=== PATIENT | male | born 1955 | race Caucasian/White ===

== ENCOUNTER 2020-12-25 13:00 | Emergency (ER) | payer MEDICARE, SELFPAY ==
[2020-12-25 13:02] VITALS: BP 212/111; PULSE 71; RESP 18; TEMP 35.9; O2SAT 100; BMI 19.9
[2020-12-25 13:03] VITALS: BP 212/111; PULSE 71; RESP 18; TEMP 35.9; O2SAT 100
--- NOTE | 2020-12-25 13:23 | ED.RN ---
Pt. presents with bilateral flank pain since yesterday. Does report some blood in urine x1 yesterday; none since. Alert and oriented x4. Ambulated to room 07 with no difficulties.
--- NOTE | 2020-12-25 14:25 | CT_ITS ---
EXAM: CT ABDOMEN AND PELVIS WITH INTRAVENOUS CONTRAST CLINICAL INDICATION: abdominal pain TECHNIQUE: Helically acquired images were obtained of the abdomen and pelvis with intravenous contrast. This CT exam was performed using one or more of the following dose reduction techniques: automated exposure control, adjustment of the mA and/or kV according to patient size, and/or use of iterative reconstruction technique. This report was created using [employer] report generation technology. CONTRAST: IV 100mL Isovue-370 COMPARISON: None. FINDINGS: LOWER THORAX: Unremarkable. Lung bases are clear. No cardiomegaly. No significant pericardial effusion. ABDOMEN: LIVER: Unremarkable. Homogeneous. No focal mass. GALLBLADDER AND BILE DUCTS: Unremarkable. No calcified gallstones. No gallbladder distention or wall edema. No intra- or extrahepatic biliary ductal dilation. PANCREAS: Unremarkable. No focal cystic or solid mass. SPLEEN: Unremarkable. Normal size without focal cystic or solid mass. ADRENALS: Unremarkable. No nodules. KIDNEYS AND URETERS: Unremarkable. Normal renal size and position. No hydronephrosis. STOMACH AND BOWEL: Unremarkable. No stomach or bowel distention. No focal inflammatory change. PELVIS: APPENDIX: Normal. BLADDER: Unremarkable. REPRODUCTIVE: Unremarkable as visualized. No mass. ABDOMEN and PELVIS: INTRAPERITONEAL SPACE: Unremarkable. No ascites or other fluid collection. No free air. BONES/JOINTS: Minimal degenerative retrolisthesis of L2 on L3. Moderate pronounced degenerative disc space height narrowing at L2-L3 and L5-S1 disc space levels. No suspicious lytic or blastic abnormality. SOFT TISSUES: Unremarkable. No discrete abdominal or pelvic wall hernia. VASCULATURE: Calcified and noncalcified plaques along the abdominal aorta and iliac arteries. Abdominal aorta is non-dilated. LYMPH NODES: Unremarkable. No enlarged lymph nodes. CT/Abdomen/Pelvis W IV Cont ONLY IMPRESSION: No CT evidence of acute abnormality in the pelvis. Electronically Signed: Mp Traylor MD at 15:47 EDT , Service support ,
--- NOTE | 2020-12-25 14:25 | EKG12_ITS ---
Test Reason : BLOODY URINE Blood Pressure : / mmHG Vent. Rate : 058 BPM Atrial Rate : 058 BPM P-R Int : 110 ms QRS Dur : 090 ms QT Int : 388 ms P-R-T Axes : 074 076 057 degrees QTc Int : 380 ms Sinus bradycardia with short CA Otherwise normal ECG Confirmed by RENATA RAY, ISHA ([id number]), assistant film editor NGUYEN ROACH ([id number]) on 12/31/2020 9:38:33 A M Referred By: JERROD Confirmed By:JOY YANEZ MD
--- NOTE | 2020-12-25 14:30 | EDS_ITS ---
HPI History of Present Illness Chief Complaint: Flank Pain Informant: patient Narrative Narrative: Patient is a 65-year-old male denies any significant past medical history but does have history of tobacco use presenting with hematuria. Patient noticed large amount of blood in his urine on Thursday, 3 days ago. He states its been fluctuating in the amount of blood in it since then. This morning he had some amount of blood but then also passed a clot. He denies associated hematuria. He notes he had been having increasing back pain since Thursday. He was doing a lot of lifting 2 days before that but not sure if it was related. He denies any history of kidney stones. He currently does not have any back pain. He went to urgent care today where he was found to have a large amount of blood in his urine but was also hypertensive. He was sent to the emergency room a she did have a kidney stone and for further evaluation of his high blood pressure. Patient denies any known history of high blood pressure but states his daughter checked his blood pressure couple weeks ago and told him it was high. Is not remember the actual number. He denies any fever or chills. He denies any nausea or vomiting. He currently has no complaints. He does have chronic numbness in his left leg but that is unchanged. [facility] Medical History Chronic neck and back pain Stomach ulcer Home Medications hydrochlorothiazide 25 mg PO DAILY #30 tab 12/25/20 [Rx Last Taken Unknown] Allergy/AdvReac Type Severity Reaction Status Date / Time Penicillins Allergy PT UNSURE Verified 12/25/20 13:04 OF REACTION Surgical History History of neck surgery Hx of knee surgery Social History Smoking Status: Current every day smoker tobacco type: cigarettes alcohol intake: never ROS ROS ED Constitutional Constitutional ED: Denies chills or fever(s) Eyes Eyes: Denies change in vision Cardiovascular Cardiovascular: Denies chest pain or palpitations Respiratory/Chest Respiratory/Chest: Denies cough or dyspnea Gastrointestinal Gastrointestinal: Denies abdominal pain, diarrhea, nausea or vomiting Genitourinary Genitourinary ED: Reports hematuria; Denies dysuria or urinary frequency Musculoskeletal Musculoskeletal: Denies myalgias Neurologic Neurologic: Denies headache(s) or weakness Psychiatric Psychiatric: Denies depression EXAM Physical Exam Const Vital Signs: 12/25/20 13:02 12/25/20 13:03 12/25/20 16:17 Temperature 96.7 F L 96.7 F L Temperature Source Temporal Temporal Pulse Rate 71 71 63 Respiratory Rate 18 18 Blood Pressure 212/111 H 212/111 H 179/88 H Blood Pressure Mean 144 144 118 Pulse Ox 100 100 Oxygen Delivery Method Room Air Room Air 12/25/20 16:37 Temperature Temperature Source Pulse Rate 86 Respiratory Rate 14 Blood Pressure 189/93 H Blood Pressure Mean Pulse Ox Oxygen Delivery Method Positive well nourished and well developed General Appearance ED: well developed HEENT Reports moist mucous membranes Negative for tenderness Eyes PERRL and EOMs intact bilaterally Neck supple Chest Wall inspection of chest normal Resp normal respiratory effort and clear to auscultation bilaterally Cardio regular rate and regular rhythm GI normal to inspection, nondistended, normoactive bowel sounds and non-tender Palpation: Negative for guarding or mass Back/Spine no CVA tenderness Thoracic Spine / Upper Back: Negative for thoracic spinal tenderness or paraspinal muscle tenderness Lumbar Spine / Lower Back: Negative for lumbar spinal tenderness Extremity normal to inspection General Extremety ED: Negative for edema General Extremity: Negative for edema Neuro oriented x3 Sensorium / Orientation: alert Motor Exam: Negative for general weakness Psych mental status grossly normal Skin no rashes or lesions noted and no wounds MDM MDM MDM Narrative Medical decision making narrative: Patient is evaluated for gross hematuria for the past few days. Has had associated back pain. Currently patient is asymptomatic. He does have hematuria on urinalysis but no signs of infection. Culture is pending. His hemoglobin is actually elevated 16.6. This is likely secondary to his chronic tobacco use. No signs of renal insufficiency on BMP. Patient is hypertensive in the ER but otherwise asymptomatic. EKG does not show any type of strain pattern or ACS. Patient not have findings consistent with hypertensive emergency. CT of the abdomen pelvis obtained given his hematuria to look for kidney stone or other pathology that could explain it. It is largely negative. Is possible he passed a kidney stone. Patient is given referral for outpatient PCP follow-up. He started on hydrochlorothiazide for his blood pressure. Patient is counseled on signs and symptoms requiring return to the emergency room. Patient verbalizes agreement and understand this plan. Patient discharged home in stable and improved condition. Lab Data Attestation: I reviewed the patient's lab results. Labs: Laboratory Results - last 24 hr 12/25/20 12/25/20 12/25/20 13:25 13:25 15:18 WBC 7.5 RBC 4.98 Hgb 16.6 H Hct 49.4 MCV 99.2 H MCH 33.3 H MCHC 33.6 RDW Std Deviation 55.4 H RDW Coeff of Yoselyn 14.8 H Plt Count 281 MPV 10.3 Immature Gran % (Auto) 0.500 Neut % (Auto) 57.0 Lymph % (Auto) 24.9 [place] % (Auto) 13.4 H Eos % (Auto) 3.1 Baso % (Auto) 1.1 H Absolute Neuts (auto) 4.3 Absolute Lymphs (auto) 1.88 Nucleated RBC % 0 Sodium 142 Potassium 4.3 Chloride 106 Carbon Dioxide 31.0 Anion Gap 5 BUN 19 H Creatinine 1.01 Estim Creat Clear Calc 61.47 Est GFR (MDRD) Af Amer 95 Est GFR (MDRD) Non-Af 78 BUN/Creatinine Ratio 18.8 Glucose 95 Calcium 9.3 Total Creatine Kinase 73 Urine Color Yellow Urine Clarity Clear Urine pH 7.0 Ur Specific [place] 1.005 Urine Protein Negative Urine Glucose (UA) Normal Urine Ketones Negative Urine Occult Blood 250 H Urine Nitrite Negative Urine Bilirubin Negative Urine Urobilinogen Normal Ur Leukocyte Esterase Negative Urine RBC 0-5 SEEN Urine WBC 0 SEEN Ur Squamous Epith Cells 0 SEEN Urine Bacteria 0 SEEN Urine Mucus 0 SEEN Radiography Diagnostic Testing: Radiology Impression Abdomen/Pelvis CT 12/25/20 14:25 IMPRESSION: No CT evidence of acute abnormality in the pelvis. Electronically Signed: Mp Traylor MD at 15:47 EDT , Service support , Rhythm Strip Rhythm Strip: Sinus Rhythm Rate: 58 Ectopy: None EKG Initial EKG: Attestation: I personally reviewed and interpreted this EKG as follows: Interpretation: Sinus Bradycardia Comments: Sinus bradycardia at a rate of 58 OK interval 110 Normal axis Normal QRS and QTc Normal ST segments Discharge Plan Triage Chief Complaint: Flank Pain ED Provider: Godman,Sophia Dx/Rx/DC Orders Clinical Impression: Hematuria, Low back pain, Hypertension Instructions: ED Hematuria, ED Hypertension New Begin Treatment Prescriptions: New hydrochlorothiazide 25 mg tablet 25 mg PO DAILY Qty: 30 RF: 0 Primary Care Provider: Care Physician,No Primary Referrals: Ivett Reid MD [STAFF PHYSICIAN] - Maria Antonia Smiley [NON-STAFF] - Care Physician,No Primary [Primary Care Provider] - Activity Restrictions/Additional Instructions: Check your blood pressure once a day and keep a log. Hold your blood pressure medication if your top blood pressure number is going below 100 or you have feeling dizzy/lightheaded. I suspect you might of passed a kidney stone which is what is causing the blood in your urine. Disposition Disposition: Home, Self Care Discharge Date/Time: 12/25/20 16:44
[2020-12-25 14:36] LABS: Absolute Lymphocyte Count 1.88 X10^3/uL (0.83-4.51); Absolute Neutrophil Count 4.3 X10^3/uL (2.0-7.7); Basophil# 0.08 X10^3/uL; Basophil% 1.1 % (0-1); Eosinophil# 0.23 X10^3/uL; Eosinophils% 3.1 % (0-5); Hematocrit 49.4 % (40-54); Hemoglobin 16.6 g/dL (13.0-16.5); Lymphocyte # 1.88 X10^3/ul (0.83-4.51); Lymphocyte % 24.9 % (19-41); Mean Corp Hgb Conc 33.6 g/dL (32-36); Mean Corpuscular Hgb 33.3 pg (27.0-32.0); Mean Corpuscular Volume 99.2 fL (80-94); Mean Platelet Vol. 10.3 fl (6.2-12.0); Monocyte# 1.01 X10^3/uL; Monocyte% 13.4 % (0-10); NRBC Flagged by Analyzer 0 % (0-5); Platelet Count 281 K/mm3 (150-450); RBC Distribution Width CV 14.8 % (11.6-14.6); RBC Distribution Width SD 55.4 fl (35.1-43.9); Red Blood Count 4.98 M/mm3 (4.6-6.2); White Blood Count 7.5 K/mm3 (4.4-11.0)
--- NOTE | 2020-12-25 14:40 | NURSING ---
NO OLD EKGS
[2020-12-25 14:48] LABS: Anion Gap 5 (5-15); BUN 19 mg/dL (7-18); BUN/Creat Ratio 18.8 RATIO (10-20); CPK Total, Creatine Kinase 73 U/L (39-308); Calcium,Total 9.3 mg/dL (8.5-10.1); Chloride 106 mmol/L (98-107); Creatinine, Serum 1.01 mg/dL (0.70-1.30); EST Glomerular Filtration Rate 78 mL/min (>60); Est Glom Filt Rate - Afr Amer 95 mL/min (>60); Estimated Creatinine Clearance 61.47 ml/min; Glucose 95 mg/dL (74-106); Potassium 4.3 mmol/L (3.5-5.1); Sodium Level 142 mmol/L (136-145)
[2020-12-25 15:31] LABS: Bacteria 0 SEEN /hpf (None Seen); Mucous, Urine 0 SEEN /hpf (<or=2+); Squamous Epithelial Cells - UA 0 SEEN /hpf (0-5); White Blood Cells 0 SEEN /hpf (0-5)
[2020-12-25 15:36] LABS: Color, Urine Yellow (Yellow); Glucose, Dipstick Normal (Normal); Ketone-Dipstick Negative (Negative); Leukocyte Esterase-Dipstick Negative /ul (Negative); Nitrite-Dipstick Negative (Negative); Occult Blood-Urine 250 /ul (Negative); Protein-Dipstick Negative (Negative); Specific Gravity, Urine 1.005 (1.002-1.030); Urine Bilirubin Dipstick Negative (Negative); Urine Clarity Clear (Clear); Urine Urobilinogen Normal (Normal)
[2020-12-25 15:48] LABS: Red Blood Cells-Urine 0-5 SEEN /hpf (0-5)
[2020-12-25 16:17] VITALS: BP 179/88; PULSE 63
[2020-12-25] MEDS: hydroCHLOROthiazide 25 MG Tablet PO (16:35)
[2020-12-25 16:37] VITALS: BP 189/93; PULSE 86; RESP 14
== END 2020-12-25 16:44 | disposition home or self-care (01) ==
PROVIDERS: Emergency Provider Emergency Medicine
DX: R31.9 Hematuria, unspecified (principal); M54.50 Low back pain, unspecified; I10 Essential (primary) hypertension; F17.210 Nicotine dependence, cigarettes, uncomplicated
CPT/HCPCS: 74177; 80048; 81001; 82550; 85025; 93005; 99283; Q9967; A4216

== ENCOUNTER 2021-04-08 07:39 | Day surgery (SDC) | payer MEDICARE, SELFPAY ==
[2021-04-08] VITALS (7 sets, daily range): BP systolic 81–152; BP diastolic 53–83; PULSE 66–88; RESP 14–16; TEMP 36.3–36.8; O2SAT 95–100; BMI 18.2
--- NOTE | 2021-04-08 07:55 | HP.PCM_ITS ---
HPI - General HPI Narrative ZEHRA INCHOLAS, is a 65 M who presents for screening colonoscopy. Patient last colonoscopy was 15 to 20 years ago. Patient denies any chronic abdominal pain, nausea, vomiting, reflux. Patient states he has bowel moods daily denies any blood. Patient denies any history of colon cancer [facility] Medical History (Updated 04/08/21 @ 09:[address] Victorina Augustine MD) Arthritis Chronic neck and back pain History of ulceration Hypertension Leg cramps Smoker Stomach ulcer Wears dentures Wears glasses Home Medications hydrochlorothiazide 25 mg PO DAILY #30 tab 12/25/20 [Rx Last Taken 04/08/21] Allergy/AdvReac Type Severity Reaction Status Date / Time Penicillins Allergy PT UNSURE Verified 04/08/21 07:59 OF REACTION Surgical History (Updated 04/05/21 @ 10:47 by Mary Rene) History of neck surgery Hx of colonoscopy Hx of knee surgery Social History Smoking Status: Current every day smoker tobacco type: cigarettes alcohol intake: never Past Medical/Surgical History Planned Operation Planned Operative Procedure/s: CSCOPE OPEN ACCESS Previous Hospitalizations/Surgeries HX Hospitalizations: No Any Problems With Anesthesia: No You/Your Family Experience Fever (Hyperthermia) With Anes: No Cholinesterase deficiency: No Cardiovascular Hx Hypertension: Yes (CONTROLLED WITH MED) Respiratory Hx Sleep Apnea: No Hx Respiratory Tract Infection/Cold (presently): No Do You Snore Loudly (louder than talking or can be heard): Yes Do You Often Feel Tired/ Fatigued/ Sleepy Dring Daytime?: No Has Anyone Observed You Stop Breathing During Sleep?: No Result (for STOP score): Positive Smoking Status: Current every day smoker Neurological Does patient have nerve stimulator: No Reproduction : No Allergies Penicillins Allergy (Verified 04/08/21 07:59) PT UNSURE OF REACTION Discharge Is Pt Admitted From a Care Home, or a Intermediate: No After D/C, Where Do you Plan to Go: Return Home Physical Exam Const alert, oriented x3 and no apparent distress HEENT normocephalic and head/scalp atraumatic Resp normal respiratory effort Cardio regular rate GI soft to palpation and non-tender; Negative for non-distended Palpation: Negative for guarding Extremity no clubbing, cyanosis or edema Neuro CN's II-XII intact bilaterally Psych mental status grossly normal Assessment & Plan Assessment/Plan (1) Screening for colon cancer: Procedure Criteria Type of Procedure Procedure Type: Elective Elective Risks - COVID COVID Risk Discussion: The surgeon/proceduralist and patient have discussed in detail the risk of exposure to and/or potential harm posed by the COVID-19 virus with having a surgery/procedure at this time versus the risk of delaying the surgery/procedure. It is not possible to know either the risk of delaying the surgery or procedure or chance of getting an infection with perfect accuracy, but a joint decision was made between the patient and the surgeon/proceduralist to proceed at this time with the scheduled surgery/procedure as indicated on the consent form. Surgery Risks - Colonoscopy Risks Include but are not Limited To: Risks include but are not limited to: Bleeding, perforation requiring further surgery, inability to complete colonoscopy requiring barium enema.
[2021-04-08] MEDS: Lactated Ringers 1,000 ML 15 ML IV ×2 (08:34→10:43)
--- NOTE | 2021-04-08 08:45 | COLBX_PTH ---
PATIENT: ZEHRA NICHOLAS LOC: EN U#:[id number] AGE/SX: 65/M ROOM: RE04/08/[address]: Dr. Victorina Augustine MD : 1955 BED: DIS: 04/08/2021 SPEC #: [id number] RECD: 04/08/21 11:21 STATUS: ANDREW REJodi #: [id number] ASHLEY: 04/08/21 08:[address]: Victorina Augustine DEPT: SURGICAL PATHOLOGY RECD BY: Bre Herrera ENTERED: 04/08/21 11:48 SP TYPE: COLON BX SANGEETA DR: Dr. Joan Wood, DO Tissues: A - Transverse colon B - Sigmoid colon biopsy C - Sigmoid colon biopsy D - Sigmoid colon biopsy E - Sigmoid colon biopsy Procedures: Surgery Specimen Level IV HEADER OPERATION: Colonoscopy ? open access (MAC) PRE-OP DIAGNOSIS: Screening for colon cancer TISSUE SUBMITTED: A ? Transverse polyp biopsy, B ? Sigmoid polyp biopsy, C ? Sigmoid polyp #2, D ? Distal sigmoid polyp, E - Distal sigmoid polyp #2 biopsy MICROSCOPIC DIAGNOSIS A. Transverse colon polyp, biopsy: Fragments of tubular adenoma. B. Sigmoid polyp, biopsy: Fragments of tubular adenoma. C. Sigmoid polyp #2, biopsy: Tubular adenoma with adjacent changes consistent with hyperplastic polyp. D. Distal sigmoid polyp, biopsy: Tubular adenoma. E. Distal sigmoid polyp #2, biopsy: Fragments of colonic mucosa, no pathologic diagnosis. SJ:ritu 04/09/2021 MICROSCOPIC DESCRIPTION Slides are reviewed. GROSS DESCRIPTION A - Received in fixative is one container labeled with the patient's name and designated transverse polyp biopsy. The specimen consists of two irregular fragments of light silva soft tissue that in aggregate measure 0.3 x 0.3 x 0.1 cm. The specimen is totally submitted in one cassette. B - Received in fixative is one container labeled with the patient's name and designated sigmoid polyp biopsy. The specimen consists of three irregular fragments of light silva soft tissue that in aggregate measure 0.4 x 0.2 x 0.1 cm. The specimen is totally submitted in one cassette. C - Received in fixative is one container labeled with the patient's name and designated sigmoid polyp #2. The specimen consists of two irregular fragments of light silva soft tissue that in aggregate measure 0.5 x 0.3 x 0.1 cm. The specimen is totally submitted in one cassette. D - Received in fixative is one container labeled with the patient's name and designated distal sigmoid polyp. The specimen consists of a silva-pink polyp measuring 0.5 x 0.5 x 0.4 cm. The specimen is totally submitted in one cassette. E - Received in fixative is one container labeled with the patient's name and designated sigmoid polyp #2 biopsy. The specimen consists of two irregular fragments of light silav soft tissue that in aggregate measure 0.4 x 0.5 x 0.1 cm. The specimen is totally submitted in one cassette. / SJ:rg 04/08/2021 TC:1 CPT: 06040 x5
--- NOTE | 2021-04-08 10:39 | OP.COLON_ITS ---
Patient Name: David Salazar Procedure Date: 04/08/2021 9:35 AM Date of : 1955 Age: 65 Procedure: Colonoscopy Indications: Screening for colorectal malignant neoplasm Providers: Victorina Augustine MD Medicines: Monitored Anesthesia Care Patient Profile: This is a 65 year old male. Last Colonoscopy: more than 10 years ago. Complications: No immediate complications. Procedure: Pre-Anesthesia Assessment: - Prior to the procedure, a History and Physical was performed, and patient medications and allergies were reviewed. The patient's tolerance of previous anesthesia was also reviewed. The risks and benefits of the procedure and the sedation options and risks were discussed with the patient. All questions were answered, and informed consent was obtained. Prior Anticoagulants: The patient has taken no previous anticoagulant or antiplatelet agents. ASA Grade Assessment: Per anesthesia. After reviewing the risks and benefits, the patient was deemed in satisfactory condition to undergo the procedure. After I obtained informed consent, the scope was passed under direct vision. Throughout the procedure, the patient's blood pressure, pulse, and oxygen saturations were monitored continuously. The Colonoscope was introduced through the anus and advanced to the cecum, identified by the appendiceal orifice, ileocecal valve and palpation. The colonoscopy was performed without difficulty. The patient tolerated the procedure well. The quality of the bowel preparation was good. Scope In: 9:45:16 AM Scope Withdrawal Time 0 hours 24 minutes 54 seconds Scope Out: 10:30:40 AM Total Procedure Duration Time 0 hours 45 minutes 24 seconds Findings: The perianal and digital rectal examinations were normal. Three semi-pedunculated polyps were found in the sigmoid colon and distal sigmoid colon. The polyps were less than 5 mm in size. These polyps were removed with a hot snare. Resection and retrieval were complete. Four sessile polyps were found in the sigmoid colon, distal sigmoid colon and transverse colon. The polyps were less than 5 mm in size. These polyps were removed with a cold biopsy forceps. Resection and retrieval were complete. Multiple small-mouthed diverticula were found in the sigmoid colon. The exam was otherwise without abnormality on direct and retroflexion views. Impression: - Three less than 5 mm polyps in the sigmoid colon and in the distal sigmoid colon, removed with a hot snare. Resected and retrieved. - Four less than 5 mm polyps in the sigmoid colon, in the distal sigmoid colon and in the transverse colon, removed with a cold biopsy forceps. Resected and retrieved. - Diverticulosis in the sigmoid colon. - The examination was otherwise normal on direct and retroflexion views. Recommendation: - Discharge patient to home. - High fiber diet. - Continue present medications. - Await pathology results. - Repeat colonoscopy in 3 years for surveillance based on pathology results. Procedure Code(s): --- Professional --- 58908, PT, Colonoscopy, flexible; with removal of tumor(s), polyp(s), or other lesion(s) by snare technique 03701, 59, Colonoscopy, flexible; with biopsy, single or multiple Diagnosis Code(s): --- Professional --- Z12.11, Encounter for screening for malignant neoplasm of colon D12.5, Benign neoplasm of sigmoid colon D12.3, Benign neoplasm of transverse colon (hepatic flexure or splenic flexure) K57.30, Diverticulosis of large intestine without perforation or abscess without bleeding CPT copyright 2017 [employer]. All rights reserved. The codes documented in this report are preliminary and upon mint machine operator review may be revised to meet current compliance requirements. MD Victorina Millard MD 04/08/2021 10:39:31 AM This report has been signed electronically. Number of Addenda: 0 Note Initiated On: 04/08/2021 9:35 AM
--- NOTE | 2021-04-08 10:39 | OP.CCLET_ITS ---
04/08/2021 No Primary Care Physician Re : [facility] This procedure was performed on Thursday, April 08, 2021. My impressions and recommendations are as follows: Impressions : - Three less than 5 mm polyps in the sigmoid colon and in the distal sigmoid colon, removed with a hot snare. Resected and retrieved. - Four less than 5 mm polyps in the sigmoid colon, in the distal sigmoid colon and in the transverse colon, removed with a cold biopsy forceps. Resected and retrieved. - Diverticulosis in the sigmoid colon. - The examination was otherwise normal on direct and retroflexion views. Recommendations : - Discharge patient to home. - High fiber diet. - Continue present medications. - Await pathology results. - Repeat colonoscopy in 3 years for surveillance based on pathology results. My findings are described in the full procedure note, which is enclosed. If I can be of further assistance, please feel free to contact me at Doctor phone number(s): , Work: . Sincerely, MD Victorina Millard MD 04/08/2021 10:39:31 AM This report has been signed electronically.
== END 2021-04-08 23:59 | disposition home or self-care (01) ==
LOC: EN 07:41 → AC 07:43
PROVIDERS: PCP Internal Medicine; Referring Provider Surgery; Visit Provider Surgery
PROC: 0DJD8ZZ Inspection of Lower Intestinal Tract, Via Natural or Artificial Opening Endoscopic (ICD-10-PCS; CPT 45378; principal; 2021-04-08 08:40)
DX: Z12.11 Encounter for screening for malignant neoplasm of colon (principal); D12.3 Benign neoplasm of transverse colon; D12.5 Benign neoplasm of sigmoid colon; K57.30 Diverticulosis of large intestine without perforation or abscess without bleeding; F17.200 Nicotine dependence, unspecified, uncomplicated; I10 Essential (primary) hypertension; Z87.19 Personal history of other diseases of the digestive system; G89.29 Other chronic pain; Z79.899 Other long term (current) drug therapy; Z87.440 Personal history of urinary (tract) infections
CPT/HCPCS: 45385; 45380; 88305; J7120; J2405

== ENCOUNTER 2021-05-09 06:56 | Outpatient (CLI) | payer MEDICARE, SELFPAY ==
--- NOTE | 2021-05-09 06:59 | CT_ITS ---
STUDY: LOW DOSE CT LUNG CANCER SCREENING REASON FOR EXAM: Male, 65 years old. Current smoker, 60 pack-year history RADIATION DOSAGE (If Supplied By Facility): CTDIvol = ( 2.01 ) mGy, DLP = ( 75.75 ) mGycm TECHNIQUE: No contrast was administered. Low dose technique was utilized (average mAS-38 and kVp 120). 1.25 mm axial source images with a slice interval of 1.25-mm were reconstructed in lung windows. 2.5 mm axial source images with a slice interval of 2.5-mm were reconstructed in lung windows. 5.0 mm axial source images with a slice interval of 5.0-mm were reconstructed in soft tissue windows. Nodule measured using lung windows on PACS and/or independent workstation with automated measurement of minimum and maximum diameter. Nodule measurement reported as average diameter rounded to the nearest whole number. Growth is defined as an increase ins size of greater than 1.5 mm. COMPARISON: None. NODULES: Calcified granuloma in the left lower lobe. Total lung nodules (excluding granulomas): 0 Emphysema: Severe centrilobular emphysema. Endobronchial lesion: None Aorta: Mild atherosclerosis Coronary arteries: Coronary artery atherosclerosis present Heart: Normal size Pulmonary artery: Unremarkable for unopacified technique Mediastinal nodes: No adenopathy Other chest and abdominal findings: No incidental findings require additional workup/follow-up. CT/Low Dose CT Lung Screening IMPRESSION: Lung-RADS category 1 - Continue annual screening with LDCT in 12 months. IMPORTANT NOTES FOR USE: ACR Lung-RADS Version 1.1 Assessment Categories Release Date: 2018 Category: Coded 0-4 bases on nodule(s) with highest degree of suspicion. Negative screen is defined as categories 1 and 2; a positive screen is defined as categories 3 and 4. Category 3 and 4A nodules that are unchanged on interval CT should be coded as category 2, and individuals returned to screening in 12 months. Category 4X: Category 3 or 4 nodules with additional imaging findings that increase the suspicion of lung cancer, such as spiculation, GGN that doubles in size in 1 year, enlarged lymph notes, etc. Category Modifiers: S (significant finding unrelated to lung cancer) Electronically Signed: Perez Parish MD (Brooks) at 8:32 EST ,
--- NOTE | 2021-05-09 12:17 | PFTCOMP_ITS ---
COMPLETE PULMONARY FUNCTION TEST INTERPRETATION Brief HPI: Patient is a 65 year old male, currently under the care of Dr. Wood, who presents to [facility] for complete pulmonary function tests secondary to diagnosis of COPD. Respiratory therapist reports good effort and reproducible results. Interpretation: Forced expiration spirometry shows a moderately severe large airways obstructive ventilatory defect with an FEV1 of 54% predicted. There is no significant bronchodilator response by strict ATS criteria. Spirograms are of good quality and plateau slowly, indicating slowly emptying areas of the lungs. The respiratory flow volume loop shows decreased expiratory flow rates at high lung volumes consistent with small airways obstruction. Lung volumes by body plethysmography show a normal total lung capacity at 5.46 L, 86% predicted. All other lung volumes are within normal limits. Diffusion capacity by carbon monoxide is decreased at 65% predicted. The airway resistance is elevated. No previous pulmonary function tests were available for review. Impression: Irreversible moderately severe large airways obstructive ventilatory defect with a symmetric reduction in diffusion capacity
== END 2021-05-09 23:59 | disposition home or self-care (01) ==
LOC: PSN 06:58
PROVIDERS: PCP Internal Medicine; Referring Provider Internal Medicine; Visit Provider Internal Medicine
DX: Z12.2 Encounter for screening for malignant neoplasm of respiratory organs (principal); J44.9 Chronic obstructive pulmonary disease, unspecified; F17.210 Nicotine dependence, cigarettes, uncomplicated
CPT/HCPCS: 71271; 94060; 94726; 94729

== ENCOUNTER → 2022-06-03 | Outpatient (CLI) | payer MEDICARE, SELFPAY ==
--- NOTE | 2022-06-03 08:05 | CT_ITS ---
STUDY: LOW DOSE CT LUNG CANCER SCREENING REASON FOR EXAM: Male, 66 years old. One pack per day smoker x40 years, quit 4 months ago, hypertension RADIATION DOSAGE (If Supplied By Facility): CTDIvol = ( 1.57 ) mGy, DLP = ( 62.07 ) mGycm TECHNIQUE: No contrast was administered. Low dose technique was utilized (average mAS-38 and kVp 120). 1.25 mm axial source images with a slice interval of 1.25-mm were reconstructed in lung windows. 2.5 mm axial source images with a slice interval of 2.5-mm were reconstructed in lung windows. 5.0 mm axial source images with a slice interval of 5.0-mm were reconstructed in soft tissue windows. COMPARISON: 05/09/2021 FINDINGS: Lung windows show underlying emphysema. Multiple new noncalcified nodules are identified since the previous study. There is a spiculated 1.37 x 1.07 cm nodule in the posterior right upper lobe, a 2.53 x 1.70 cm nodule in the right middle lobe, noncalcified 5 and 6 mm nodules in the left lower lobe on axial images 173, 193 and 197.. There is also a 1.90 x 1.0 cm nodule in the lingula on axial image 211. All are new since the previous study, further evaluation with PET/CT or biopsy recommended There are chronic interstitial changes noted in both lung arevalo with nonspecific pleural thickening and no organized infiltrate. Thyroid gland is unremarkable, no suspicious axillary mediastinal or perihilar adenopathy. There are calcified coronary vessels. Bony structures show degenerative change. Limited cuts through the upper abdomen do not show suspicious abnormality. CT/Low Dose CT Lung Screening IMPRESSION: Lung-RADS category 4X - Chest CT with or without contrast, PET/CT and/or tissue sampling can be obtained depending on the probability of malignancy and comorbidities. IMPORTANT NOTES FOR USE: ACR Lung-RADS Version 1.1 Assessment Categories Release Date: 2018 Category: Coded 0-4 bases on nodule(s) with highest degree of suspicion. Negative screen is defined as categories 1 and 2; a positive screen is defined as categories 3 and 4. Category 3 and 4A nodules that are unchanged on interval CT should be coded as category 2, and individuals returned to screening in 12 months. Category 4X: Category 3 or 4 nodules with additional imaging findings that increase the suspicion of lung cancer, such as spiculation, GGN that doubles in size in 1 year, enlarged lymph notes, etc. Category Modifiers: S (significant finding unrelated to lung cancer) Electronically Signed: Mazin Cortés MD at 9:02 EDT ,
== END | disposition home or self-care (01) ==
LOC: CT 08:01
PROVIDERS: PCP Internal Medicine; Referring Provider Internal Medicine; Visit Provider Internal Medicine
DX: F17.210 Nicotine dependence, cigarettes, uncomplicated (principal)
CPT/HCPCS: 71271

== ENCOUNTER → 2022-06-17 | Outpatient (CLI) | payer MEDICARE, SELFPAY ==
--- NOTE | 2022-06-17 09:30 | PET_ITS ---
EXAMINATION: FDG PET/CT INDICATIONS: 66-year-old male with a history of pulmonary nodularity, presenting for initial staging examination. COMPARISON EXAMINATION: CT CHEST 06/03/2022 INDEX LESION SIZE SUV INTERPRETATION Right upper lung field, right upper lobe 13.6 mm 5.9 Fulfills quantitative criteria for viable neoplasm, histopathologic analysis recommended Right mid anterior and left 2.0 max Quantitative criteria for viable neoplasm are not fulfilled anterolateral lung zones TECHNIQUE: Following the intravenous administration of 12.92 mCi of F-18 deoxyglucose via the left antecubital fossa, multiplanar image acquisitions of the head, neck, chest, abdomen and pelvis, and lower extremities to the level of the bilateral forefoot, obtained at one-hour post radiopharmaceutical administration contemporaneously interpreted reveal: SERUM GLUCOSE LEVEL: 109 mg/dL HEIGHT: 67 inches WEIGHT: 121 pounds FINDINGS: HEAD/NECK: There is no evidence of abnormal increased glucose metabolism in the pharyngeal mucosal space, parapharyngeal space, oropharynx, bilateral-lateral and anterior neck, hypopharynx and distribution of the larynx. The visualized portion of the cerebral cortical-subcortical structures demonstrate symmetric and preserved glucose metabolism. CHEST: Focal increased glucose metabolism is identified in the right apical posteromedial lung zone, right upper lobe, generating a calculated maximum standard uptake value of 5.9. The maximal axial diameter of the metabolic, morphologic abnormality is 13.6 mm AP. There are two additional foci of increased radiopharmaceutical concentration noted in the right mid anterior and left lower anterolateral lung zone, generating a calculated standard uptake value of 2.0 and 1.4, respectively. CT of the chest demonstrates the following anatomic characteristics: Atherosclerotic calcification is defined in the thoracic aorta without evidence of dilatation, aneurysm formation. Coronary arterial calcification is observed. Right and left axillary soft tissue densities are nonglucose avid. Emphysematous changes are defined in the bilateral upper-mid lung zones. A nodular focus defined in the left lower posterolateral lung zone is nonglucose avid. Prominent uptake is noted in the visualized mid to distal esophagus, most consistent with physiologic tracer uptake. ABDOMEN/PELVIS: Normal physiologic distribution of the radiopharmaceutical is identified in the hepatic (2.0) and splenic parenchyma, both renal units, urinary bladder, and visualized intestinal tract. Diffuse intestinal tract is identified in all four quadrants of the abdomen and pelvis. CT of the abdomen and pelvis is remarkable for the following: Atherosclerotic calcification is defined in the abdominal aorta without evidence of dilatation, aneurysm formation. Abdominal-pelvic arterial calcification is observed. Calcification is encountered in the pancreatic body and tail. Colonic diverticula are visualized without evidence of colonic diverticulitis. Bilateral inguinal soft tissue densities are nonglucose avid. MUSCULOSKELETAL/INTEGUMENTARY: There is no evidence of quantitatively significant enhanced glucose metabolism on meticulous inspection of the appendicular and axial skeletal structures. Degenerative changes defined in the thoracic and lumbar spine demonstrate no evidence of increased glucose metabolism. There are no sclerotic, mixed sclerotic-lytic, or primarily lytic changes defined in the axial skeletal structures with evidence of increased FDG uptake. PET/PET/CT Tumor WB Initial IMPRESSION: 1. The increase in radiopharmaceutical concentration defined in the right upper posteromedial lung zone, right upper lobe, fulfills quantitative criteria for viable neoplasm. (Janessa et al, Journal of Nuclear Medicine, 32:1, 1991). 2. Enhanced tracer uptake noted in two additional locations within the right mid anterior and left anterolateral lung zone do not fulfill quantitative criteria for viable neoplasm. Electronic Signature Michael Ambriz D.O. Accurate Quantification of SUVs for this report are calculated using the exclusive [employer]. (U.S. Patent No. [phone] B2 [phone] [place] patent [phone]). Standardization and correction of the FDG SUV metric via [employer] technology allow for vendor non-specific objective quantitative examination comparison and optimization of the sensitivity and specificity of the FDG PET-CT examination. Electronically Signed: Michael Ambriz, at 23:19 EDT ,
== END | disposition home or self-care (01) ==
PROVIDERS: PCP Internal Medicine; Referring Provider Internal Medicine; Visit Provider Internal Medicine
DX: R91.8 Other nonspecific abnormal finding of lung field (principal)
CPT/HCPCS: 78816; A9552

== ENCOUNTER → 2022-07-10 | Outpatient (CLI) | payer MEDICARE, SELFPAY ==
[2022-07-10] VITALS (12 sets, daily range): BP systolic 97–165; BP diastolic 55–83; PULSE 67–90; RESP 10–18; TEMP 36.3; O2SAT 96–100; BMI 19.2
--- NOTE | 2022-07-10 | IMM_PTH ---
PATIENT: ZEHRA NICHOLAS LOC: CT U#:[id number] AGE/SX: 66/M ROOM: RE07/10/[address]: Dr. Alyssa Horowitz MD : 1955 BED: DIS: 07/10/2022 SPEC #: [id number] RECD: 07/10/22 14:47 STATUS: SOUT REQ #: [id number] ASHLEY: 07/10/22 00:[address]: Alyssa Horowitz DEPT: IMMUNOHISTOCHEMISTRY RECD BY: Valencia Sullivan ENTERED: 07/10/22 14:49 SP TYPE: IMMUNO OTHR DR: Dr. Joan Wood DO Tissues: Right lung, NOS Procedures: RCC (add) NAPSIN A (add) CK20 (add) CK5-6 (add) CK7 (add) CK8 (add) HEP PAR (add) TTF1 (add) Pankeratin (initial) P40 (add) PSAP (add) PHYSICIAN & [address] [address] SPECIMEN INFORMATION: Tissue Source: Right lung Clinical Info: Right lung mass Specimen Number: [id number] CPT code: 26616, 82088 x10 METHODOLOGY: Deparaffinized sections of prefer/formalin-fixed tissue or PAP/DQ stained slides are incubated with monoclonal/polyclonal antibodies/oligonucleotide probes. Localization is made via biotin free immunoperoxidase method. Appropriate controls are performed and reacted as expected. Results on target cell population are indicated in the following table: RESULTS: ANTIBODY / CLONE RESULT AE1-3 (AE1/AE3/PCK26) positive CK7 (OV-TL12/30) positive CK8 (73elsvL52) positive CK20 (KS20.8) negative TTF-1 (8G7G3/1) positive Napsin A (Rabbit Polyclonal) negative HepPar (OCh1E5) negative RCC (PN-15) negative PSAP (PASE/4LJ) negative CK5-6 (D5 & 1684) negative P40 (BC28) negative These tests were developed and their performance characteristics determined by [facility]. They may not have been cleared or approved by the U.S. Food and Drug Administration. The FDA has determined that such clearance or approval is not necessary. The above immunohistochemical/dualISH markers are ordered and reviewed by the Pathologist. INTERPRETATION: Right lung mass, CT-guided biopsy: Negative for malignancy. See comment. RONDA:ritu 07/17/2022 Comment: The specimen is sent to [facility] for expert opinion, reviewed by Dr. Herring and the above diagnosis is rendered. The complete report is viewable in the patient's EMR. Case has been reviewed in consultation with Dr. Villafuerte who concurs with the above diagnosis. IDC:AM
--- NOTE | 2022-07-10 | ASPIGT_PTH ---
PATIENT: ZEHRA NICHOLAS LOC: ND U#:[id number] AGE/SX: 66/M ROOM: RE07/10/[address]: Dr. Alyssa Horowitz MD : 1955 BED: DIS: 07/10/2022 SPEC #: [id number] RECD: 07/10/22 10:42 STATUS: ANDREW REQ #: [id number] ASHLEY: 07/10/22 00:[address]: Alyssa Horowitz DEPT: SURGICAL PATHOLOGY RECD BY: Bre Herrera ENTERED: 07/10/22 10:42 SP TYPE: ASP RAD OTHR DR: Dr. Joan Wood DO Tissues: Lung, NOS Procedures: FNA Specimen Adequacy [facility] Consultation (on slides) Special Stain Group II Surgery Specimen Level IV Imprint (control) HEADER OPERATION: CT-guided right lung biopsy PRE-OP DIAGNOSIS: Right lung mass TISSUE SUBMITTED: Right lung 20-gauge x6 MICROSCOPIC DIAGNOSIS Right lung, CT-guided core biopsy: Fragmented lung parenchyma with moderate chronic and acute inflammation, reactive changes and collagenous fibrosis with hyalinization and inflammatory infiltrate. Negative for malignancy. See comment. SJ:rg 07/17/2022 COMMENT The specimen is evaluated at the time of biopsy by Dr. Fry. Immediate Evaluation = Atypical cells noted. Immunohistochemistry ([id number]) supports the above diagnosis. The specimen is sent to [facility] for expert opinion, reviewed by Dr. Herring and the above diagnosis is rendered. The complete report is viewable in the patient's EMR. Dr. Herring also commented ?no evidence of neoplasm is identified in this specimen.? If clinically indicated, repeat tissue sampling is recommended. Case has been reviewed in consultation with Dr. Villafuerte who concurs with the above diagnosis. IDC:AM MICROSCOPIC DESCRIPTION Slides are reviewed. GROSS DESCRIPTION Received in fixative is one container labeled with the patient's name and designated right lung. The specimen consists of multiple minute fragments of silva tissue that in aggregate measure 0.6 x 0.1 x <0.1 cm. The specimen is totally submitted in one cassette. / AM:rg 07/10/2022 TC:5 CPT: 29513, 63149 ADDENDUM ADDENDUM ADDENDUM ADDENDUM ADDENDUM ADDENDUM ADDENDUM ADDENDUM ADDENDUM ADDENDUM ADDENDUM 09/15/2022 10:19 ADDENDUM 09/15/2022 10:19 ADDENDUM 09/15/2022 10:19 ADDENDUM 09/15/2022 10:19 ADDENDUM 09/15/2022 10:19 This addendum is added to incorporate an outside pathology consultation report. The case was examined at [facility] (#[id number]) and the following diagnosis was rendered. Right lung, CT-guided core biopsy: Cores of benign lung tissue with fibrous scarring, chronic inflammation and reactive pneumocyte hyperplasia. Please see complete above mentioned consultation report in EMR
[2022-07-10 07:42] LABS: Absolute Lymphocyte Count 1.54 X10^3/uL (0.83-4.51); Absolute Neutrophil Count 5.3 X10^3/uL (2.0-7.7); Basophil# 0.08 X10^3/uL; Eosinophil# 0.34 X10^3/uL; Eosinophils% 4.1 % (0-5); Hematocrit 43.8 % (40-54); Hemoglobin 14.3 g/dL (13.0-16.5); Lymphocyte # 1.54 X10^3/ul (0.83-4.51); Lymphocyte % 18.6 % (19-41); Mean Corp Hgb Conc 32.6 g/dL (32-36); Mean Corpuscular Hgb 31.8 pg (27.0-32.0); Mean Corpuscular Volume 97.6 fL (80-94); Monocyte# 1.03 X10^3/uL; Monocyte% 12.5 % (0-10); NRBC Flagged by Analyzer 0 % (0-5); Neutrophil # 5.25 X10^3/uL (2.7-7.7); Neutrophil % 63.6 % (47-70); Platelet Count 339 K/mm3 (150-450); RBC Distribution Width CV 14.5 % (11.6-14.6); RBC Distribution Width SD 52.1 fl (35.1-43.9); Red Blood Count 4.49 M/mm3 (4.6-6.2); White Blood Count 8.3 K/mm3 (4.4-11.0)
--- NOTE | 2022-07-10 07:48 | CT_ITS ---
PROCEDURE: CT GUIDED CORE NEEDLE BIOPSY OF A right medial apical lung LUNG LESION INDICATION: Male, 66 years old. RUL NODULE PHYSICIAN: Dr. Brandi Martínez CONSENT: Written informed consent was obtained having explained the risks, benefits and alternatives in detail with the patient who accepted the risks and agreed to proceed. Laboratory review and clinical assessment was performed. CONSCIOUS SEDATION PROTOCOL: The Drugs used were: 2 mg Versed, IV., and 50 mcg Fentanyl, IV. The sedation time was: 30 minutes. Conscious sedation was started at 9:14 AM and terminated at 9:44 AM. The conscious sedation protocol was independently monitored. RADIATION DOSAGE (If Supplied By Facility): CTDIvol = ( 15 ) mGy, DLP = ( 442.62 ) mGycm Individualized dose optimization techniques were used for this CT. TECHNIQUE: The patient was placed in the prone position. A noncontrast CT was performed to localize the lesion in the medial right apex . The skin surface was prepped and draped in a sterile fashion. 1% lidocaine was used for local anesthesia. Using CT guidance, a 20-gauge coaxial biopsy device was advanced to the periphery of the lesion. A total of 7 core specimens were obtained. The specimens were placed in a formalin solution. A post procedure CT demonstrated no adverse sequelae or pneumothorax. The patient tolerated the procedure well without adverse event. A negative biopsy does not exclude malignancy. Further imaging or clinical followup based on patient condition and degree of clinical suspicion for malignancy. Suggest rebiopsy, if biopsy results do not match with clinical scenario. CT/Biopsy/Inj or Needle Placement IMPRESSION: 1. CT directed core needle biopsy of the nodular density in the posterior medial portion of the right upper lobe using CT image guidance with image documentation as described. Pathology results are pending. 2. Conscious Sedation protocol utilized with independent monitoring. Electronically Signed: Ghassan Paz MD at 10:14 EDT ,
[2022-07-10 07:59] LABS: International Normalized Ratio 1.1; Partial Thromboplast Time 29.3 Seconds (24.1-36.2)
[2022-07-10] MEDS: 0.9% Saline Lock 10 ML Syringe IV (08:26)
[2022-07-10] MEDS: Midazolam 2 MG/2 ML Syringe IV (09:14)
[2022-07-10] MEDS: fentaNYL 100 MCG/2 ML Ampul IV (09:17)
--- NOTE | 2022-07-10 09:30 | RAD_ITS ---
STUDY: X-RAY CHEST REASON FOR EXAM: Male, 66 years old. Post biopsy -- Immediately post lung biopsy TECHNIQUE: AP inspiration and expiration views. COMPARISON: None. FINDINGS: No evidence of pneumothorax on the immediate post right lung biopsy radiographs. RAD/Chest Insp/Exp 2 View IMPRESSION: No evidence of pneumothorax on the immediate post right lung biopsy radiographs. Electronically Signed: Ghassan Paz MD at 10:11 EDT ,
[2022-07-10] MEDS: Lidocaine 2% (20 ml mdv) 20 ML Vial INFILT (09:32)
--- NOTE | 2022-07-10 12:05 | RAD_ITS ---
STUDY: X-RAY CHEST REASON FOR EXAM: Male, 66 years old. 2 hrs post biopsy -- 2 hours post lung biopsy TECHNIQUE: AP inspiration and expiration views. COMPARISON: Comparison is made with prior study done earlier today. FINDINGS: No evidence of pneumothorax on the 2 hour post right lung biopsy radiographs. RAD/Chest Insp/Exp 2 View IMPRESSION: No evidence of pneumothorax on the two-hour post right lung biopsy radiographs. Electronically Signed: Ghassan Paz MD at 13:14 EDT ,
== END | disposition home or self-care (01) ==
PROVIDERS: PCP Internal Medicine; Referring Provider Internal Medicine Hematology & Oncology; Visit Provider Internal Medicine Hematology & Oncology
DX: Z01.812 Encounter for preprocedural laboratory examination (principal); J84.10 Pulmonary fibrosis, unspecified; K25.9 Gastric ulcer, unspecified as acute or chronic, without hemorrhage or perforation; R91.8 Other nonspecific abnormal finding of lung field
CPT/HCPCS: 32408; 36415; 71046; 77012; 85025; 85610; 85730; 88172; 88305; 88313; 88325; 88341; 88342; 99156; 99157; J7050; A4216

== ENCOUNTER → 2022-07-22 | Outpatient (CLI) | payer MEDICARE, SELFPAY ==
--- NOTE | 2022-07-23 10:11 | PFT ---
INTRODUCTION: The patient is a 67-year-old male that presents for pulmonary function studies secondary to a diagnosis of lung nodules. Respiratory therapy reported good patient effort. Bronchodilators were used during testing. INTERPRETATION: Forced expiration spirometry demonstrates the presence of a mild large airways obstructive ventilatory defect. There was no significant response to aerosolized bronchodilators. Spirograms are of good quality but do not plateau indicating slow emptying of the lungs. Body plethysmography was performed and revealed an elevated TLC and RV, indicative of underlying hyperinflation and air trapping. Diffusing capacity by single breath CO was within normal limits. IMPRESSION: Irreversible mild large airways obstructive ventilatory defect with associated hyperinflation and air trapping.
== END | disposition home or self-care (01) ==
LOC: PSN 09:43
PROVIDERS: PCP Internal Medicine; Referring Provider Internal Medicine Hematology & Oncology; Visit Provider Internal Medicine Hematology & Oncology
DX: R91.8 Other nonspecific abnormal finding of lung field (principal)
CPT/HCPCS: 94060; 94726; 94729

== ENCOUNTER → 2022-08-13 | Outpatient (CLI) | payer MEDICARE, SELFPAY ==
--- NOTE | 2022-08-13 13:57 | ECHODONC_ITS ---
Version 3 Reason For Study: LUNG NODULE Procedure This was a 2D Doppler, Color Flow transthoracic echocardiogram. Myocardial strain analysis was performed in this exam to aid in the assessment of cardiac function. The study was technically difficult. Exam performed in department. Left Ventricle Normal LV size. Left ventricular systolic function is normal. The estimated ejection fraction is 55 %. Stage 1 diastolic dysfunction. No regional wall motion abnormalities noted. Right Ventricle Normal RV size. Normal systolic function. Atria Normal left atrium. Normal right atrium. Mitral Valve Normal mitral valve. Tricuspid Valve Normal tricuspid valve. Mild (1+) tricuspid valve insufficiency. Pulmonary artery systolic pressure is 40 mmHg. Aortic Valve Trisinus/trileaflet aortic valve. Pulmonic Valve Normal pulmonic valve. Great Vessels Normal aortic root. The pulmonary artery is normal size. Inferior vena cava collapse with respiration. Pericardium/Pleural No pericardial effusion. MMode/2D Measurements & Calculations LVIDd: 4.2 cm IVSd: 0.81 cm LVOT diam: 1.9 cm LVIDs: 2.5 cm LVPWd: 0.77 cm LVOT area: 2.9 cm2 RVDd: 3.7 cm FS: 38.9 % Ao root diam: 3.4 cm LAV(MOD-bp): 27.9 ml LVAd ap4: 14.6 cm2 LAV(MOD-bp) Indexed: 15.9 ml/m2 LVLd ap4: 5.4 cm LAV(MOD-sp2): 38.3 ml EDV(MOD-sp4): 30.8 ml LAV(MOD-sp4): 18.8 ml EDV(sp4-el): 33.2 ml LVAs ap4: 8.4 cm2 LVLs ap4: 4.5 cm ESV(MOD-sp4): 12.8 ml ESV(sp4-el): 13.4 ml EF(MOD-sp4): 58.4 % EF(sp4-el): 59.7 % LVAd ap2: 17.9 cm2 SV(MOD-sp4): 18.0 ml SV(MOD-sp2): 27.4 ml LVLd ap2: 6.2 cm EDV(MOD-sp2): 43.6 ml EDV(sp2-el): 43.8 ml LVAs ap2: 10.1 cm2 LVLs ap2: 5.4 cm ESV(MOD-sp2): 16.2 ml ESV(sp2-el): 16.2 ml EF(MOD-sp2): 62.9 % SV(sp4-el): 19.8 ml LA dimension(2D): 2.3 cm LA A4 area: 10.5 cm2 RA A4 area: 13.3 cm2 Time Measurements MV dec time: 0.22 sec Doppler Measurements & Calculations MV E max zay: 60.1 cm/sec Lat Peak E' Zay: 11.9 cm/sec Med Peak E' Zay: 12.3 cm/sec MV A max zay: 80.7 cm/sec E/E' lat: 5.0 E/E' med: 4.9 MV E/A: 0.74 Ao V2 max: 87.3 cm/sec LV V1 max: 76.9 cm/sec MV dec slope: 268.6 cm/sec2 Ao max P.0 mmHg LV V1 max P.4 mmHg CHACHO(V,D): 2.5 cm2 PA V2 max: 88.7 cm/sec TR max zay: 303.0 cm/sec PA max PG (full): 0.35 mmHg TR max P.7 mmHg ECHO/ONC Echo Complete Interpretation Summary Normal LV size. Left ventricular systolic function is normal. The estimated ejection fraction is 55 %. Stage 1 diastolic dysfunction. Pulmonary artery systolic pressure is 40 mmHg. The global longitudinal strain is borderline abnormal. The global longitudinal strain = -16.4% (abnormal). Ordering Physician: Jacquelyn Simmons Referring Physician: Joan Wood M.D. Performed By: Marilee Gregory RDCS
== END | disposition home or self-care (01) ==
PROVIDERS: PCP Internal Medicine; Referring Provider Nurse Practitioner Family; Visit Provider Nurse Practitioner Family
DX: R91.1 Solitary pulmonary nodule (principal); R06.09 Other forms of dyspnea
CPT/HCPCS: 93306; 93356

== ENCOUNTER → 2023-05-12 | Outpatient (CLI) | payer MEDICARE, SELFPAY ==
--- OUTSIDE RECORDS SUMMARY | 2023-05-12 07:53 | XMS RPT_ITS | CCD ---
Author Name Unknown Address [address] [place] [address] Organization [facility] Care Team Providers Care Advertising Sales Assistant Name Role Phone Joan Ko DO Unavailable Friend, Dr. Manzo Unavailable Jessica GALEANON, Kary Unavailable Unavailable Roseanna Martinez MA Unavailable Unavailable Justin FIORE, Enoc Unavailable Unavailable Ivett Reid MD Unavailable Unavailable Unavailable Joan Ko DO Unavailable Gravius UI DEVELOPER WITH ANGULAR JS, Leidy Unavailable Unavailable Ivett Reid MD Unavailable Manchak UI DEVELOPER WITH ANGULAR JS, Karen Unavailable Unavailable Payal Menezes MA Unavailable Unavailable Joan Ko DO Attending Unavailable Joan Ko DO Consulting Unavailable Kadie Mcgraw Unavailable Huong YE, Kayela Unavailable Unavailable Venancio Bo Unavailable Cathy Rudolph LPN Unavailable Unavailable Joan Ko DO Primary Care Provider Alexandra Stallings RN Unavailable Unavailable Isckarus SAMH, Mansour S Unavailable Joan Ko DO Primary Care Provider Alexandra Stallings RN Unavailable Unavailable Isckarus MBBCH, Mansour S Unavailable JOAN KO Primary Care Unavailable EVELIN MARIEE Attending Unavailable EVELIN MARIEE Referring Unavailable KADIE LAURENT Admitting Unavailable ISCKARUS, MANSOUR S Referring Unavailable KADIE LAURENT Attending Unavailable JOAN KO Primary Care Unavailable KADIE LAURENT Attending Unavailable JOAN KO Primary Care Unavailable JOAN KO Referring Unavailable MERCEDES FARLEY Referring Unavailable JOAN KO Primary Care Unavailable EVELIN MARIEE Attending Unavailable KADIE LAURENT Attending Unavailable ALYSSA HOROWITZ Referring Unavailable JOAN KO Primary Care Unavailable KADIE LAURENT Attending Unavailable KADIE LAURENT Referring Unavailable JOAN KO Primary Care Unavailable Allergies Allergy Classification Reported Allergen(s) Allergy Type Date of Onset Reaction(s) Facility (20 sources) Penicillin G; Translations: [Penicillin G Potassium *PENICILLINS*] Drug Allergy [facility] Work Phone: (6 sources) Penicillin G Drug Allergy 3 [facility] Medications Current Medications Medication Drug Class(es) Dates Sig (Normalized) Sig (Original) acetaminophen 325 mg oral tablet (20 sources) Start: 09-10-2022 End: 09-17-2022 take 2 tablets by mouth every six hours Acetaminophen 325 MG tablet Take 2 tablets by mouth every 6 hours for 7 days. 56 tablet 0 09/10/2022 Active Completed/Discontinued Medications Medication Drug Class(es) Dates Sig (Normalized) Sig (Original) albuterol 0.833 mg/ml / ipratropium bromide 0.167 mg/ml inhalation solution (3 sources) Anticholinergic, beta2-Adrenergic Agonist Start: 09-10-2022 End: 09-12-2022 take 3 mL by inhalation every six hours as needed Ipratropium-albut ade (DUONEB) 0.5-2.5 (3) MG/3ML nebulizer solution 3 mL Problems Active Problems Problem Classification Problem Date Documented Da te Episodic/Chronic Abdominal pain (20 sources) Upper abdominal pain; Translations: [Pain of upper abdomen] 06-04-2022 Episodic Calculus of urinary tract (20 sources) Kidney stone; Translations: [Nephrolithiasis] 02-22-2021 Episodic Past or Other Problems Problem Classification Problem Date Documented Da te Episodic/Chronic Conditions associated with dizziness or vertigo (20 sources) Conditions associated with dizziness or vertigo Hepatitis (2 sources) Hepatitis Mood disorders (6 sources) Mood disorders Onset: 07-30-2022 Resolved: 09-17-2022 07-30-2022 Residual codes; unclassified (5 sources) At risk of deep vein thrombosis; Translations: [Other specified personal risk factors, not elsewhere classified] Onset: 09-08-2022 Resolved: 09-12-2022 09-12-2022 Episodic Unclassified (20 sources) Unspecified Diagnosis 03-14-2021 Unclassified (2 sources) Annual Medicare Physical WITH abnormal findings (Renamed from Encounter for general adult medical examination with abnormal findings) Results Test Name Value Interpretation Reference Range Facil ity Vital Signs Date Time Vital Sign Value Performing Clinician Facility 09-25-2022 14:36-0400 Body height 170.18 cm Joan Ko DO Work Phone: [facility] Work Phone: 09-25-2022 14:36-0400 Body mass index (BMI) [Ratio] 20.83 kg/m2 Joan Ko DO Work Phone: [facility] Work Phone: 09-25-2022 14:36-0400 Body surface area Derived from formula 1.7 m2 Joan Ko DO Work Phone: [facility] Work Phone: 09-25-2022 14:36-0400 Body weight 60.33 kg Joan Ko DO Work Phone: [facility] Work Phone: 09-17-2022 11:34-0400 Body height 175.3 cm Kadie Laurent MD Work Phone: [facility] 09-17-2022 11:34-0400 Body mass index (BMI) [Ratio] 19.79 kg/m2 Kadie Laurent MD Work Phone: [facility] 09-17-2022 11:34-0400 Body temperature 98.01 [degF] Kadie Laurent MD Work Phone: [facility] 09-17-2022 11:34-0400 Body weight 60.78 kg Kadie Laurent MD Work Phone: [facility] 09-17-2022 11:34-0400 Diastolic blood pressure 80 mm[Hg] Kadie Laurent MD Work Phone: [facility] Encounters Encounter Date Encounter Type Care Provider Facility Start: 09-25-2022 End: 09-25-2022 Office outpatient visit 5 minutes Joan Ko DO Work Phone: [facility] Start: 09-17-2022 ambulatory MERCEDES FARLEY Facilit y:[facility] Start: 09-17-2022 ambulatory JOAN KO Facil ity:[facility] Start: 09-17-2022 End: 09-17-2022 Subsequent hospital visit by physician Evelin Mariee CAMOUFLAGE ASSEMBLER-FIRE SUPERVISOR Work Phone: [facility] Procedures Date Procedure Procedure Detail Performing Clinician Start: 09-17-2022 Radiologic exam ches t 2 views Mercedes Farley CAMOUFLAGE ASSEMBLER-FIRE SUPERVISOR Work Phone: Start: 09-17-2022 Radiologic exam ches t 2 views Evelin Mariee CAMOUFLAGE ASSEMBLER-FIRE SUPERVISOR Work Phone: Start: 09-12-2022 Radiologic exam ches t single view Evelin Mariee CAMOUFLAGE ASSEMBLER-FIRE SUPERVISOR Work Phone: Start: 09-12-2022 Radiologic exam ches t single view Chiara Gillette CAMOUFLAGE ASSEMBLER-FIRE SUPERVISOR Work Phone: Start: 09-12-2022 Assay of magnesium Cash ntha Raiza Carter PAC Work Phone: Start: 09-12-2022 CBC AND ELECTRONIC DIFF Allison Carter PAC Work Phone: Start: 09-12-2022 Complete blood count with white cell differential, automated Allison Carter PAC Work Phone: Start: 09-11-2022 Radiologic exam ches t single view Alexandra Shah CAMOUFLAGE ASSEMBLER-FIRE SUPERVISOR Work Phone: Start: 09-11-2022 Assay of magnesium Cash ntha L Carter PAC Work Phone: Start: 09-11-2022 CBC AND ELECTRONIC DIFF Allison L Carter PAC Work Phone: Start: 09-11-2022 Complete blood count with white cell differential, automated Allison L Carter PAC Work Phone: Start: 09-10-2022 Radiologic exam ches t single view Allison L Carter PAC Work Phone: Start: 09-10-2022 Assay of magnesium Cash ntha L Carter PAC Work Phone: Start: 09-10-2022 CBC AND ELECTRONIC DIFF Allison L Carter PAC Work Phone: Start: 09-10-2022 Complete blood count with white cell differential, automated Allison L Carter PAC Work Phone: Start: 09-09-2022 Oscillating positive expiratory pressure (flutter) physiotherapy Chiquita Moura CAMOUFLAGE ASSEMBLER-FIRE SUPERVISOR Work Phone: Start: 09-09-2022 Radiologic exam ches t single view Allison L Carter PAC Work Phone: Start: 09-09-2022 CONTINUOUS CARDIAC MONITORING STRIP Other Other Start: 09-09-2022 Assay of magnesium Cash ntha L Carter PAC Work Phone: Start: 09-09-2022 CBC AND ELECTRONIC DIFF Allison L Carter PAC Work Phone: Start: 09-09-2022 Complete blood count with white cell differential, automated Allison L Carter PAC Work Phone: Start: 09-09-2022 End: 09-09-2022 Antibody screen Kadie Laurent MD Work Phone: Plan of Treatment Date Care Activity Detail Author Start: 09-13-2023 Potassium [Moles/vol ume] in Serum or Plasma POTASSIUM [facility] Start: 07-31-2023 Potassium [Moles/vol ume] in Serum or Plasma POTASSIUM [facility] Start: 11-21-2022 Influenza vaccination O [facility] Start: 09-17-2022 End: 09-17-2022 Patient encounter procedure 09/17/2022 11:45 AM EDT Office Visit Division of Thoracic Surgery at [facility] [address] [place] [address] Kadie Laurent MD [address] [place] [address] Division of Thoracic Surgery at [facility] Start: 09-09-2022 End: 09-09-2022 [facility] incl fluor gdnce dx w/cell washg spx BRONCHOSCOPY FLEXIBLE DIAGNOSTIC Lung nodule 09/09/2022 11:30 AM EDT [facility] Start: 09-09-2022 End: 09-09-2022 Evaluation and management of inpatient CCCT PERIOP Immunizations Immunization Date Immunization Notes Care Provider Fa cility 05-21-2021 zoster vaccine, live Pepper Ko DO Work Phone: [facility] Work Phone: 11-21-2020 COVID-Pfizer (10 MCG/0.2 ML) Joan Ko DO Work Phone: [facility] Work Phone: 10-31-2020 COVID-Pfizer (30 MCG TRS-SUCR) Joan Ko DO Work Phone: [facility] Work Phone: Payers Date Payer Category Payer Medicare MEDICARE [employer] HMO PPO MEDICARE [employer] HMO PPO [id number] 2020-Present [address] [address] [place] [address] [id number] 2020 Private Health Insurance [id number] 1955 Unknown [id number] 1955 Unknown [id number] 1955 Unknown [id number] 1953 Unknown [id number] 1953 Unknown [id number] 1953 Unknown [id number] 1953 Unknown [id number] 1955 Unknown [id number] Unknown HU[employer]/MCARE PPO Social History Date Type Detail Facility Alcohol Use: Alcohol Use: [facility] Work Phone: Start: 07-30-2022 End: 09-17-2022 Caffeine Use Caffeine Use [facility] Work Phone: Clinical Notes 07-30-2022 to 09-17-2022 Mercedes Farley, [facility] - 09/17/2022 11:45 AM EDTNursing Notes - Jimbo Mercado RN - 09/12/2022 12:23 PM EDTPlan of Care - Linda Medrano RN - 09/12/2022 12:22 PM EDTMedicationsAttachments Note Date & Type Note Facility 09-17-2022 History of Present illness Narrative PROGRESS NOTE Chief Complaint Patient presents with Surgical Follow-up David Salazar is a 67 y.o. male former smoker who is status post robotic assisted thoracoscopic right upper lobe wedge resection for a lung nodule on 09/09/22. [facility] 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 He has done well since discharge. He denies recent fevers, chills, nausea, vomiting, issues with bowel/bladder, redness/drainage of incisions. He does endorse intermittent sharp pain near incisions and shoulder pain. He has been taking tramadol at home but reports that it makes him have episodes of agitation. Oncology History No history exists. Review of Systems Negative for fever, chills, SOB, CORNEJO, cough, or hemoptysis. Pain is moderately controlled. Physical Exam BP 172/80 (BP Location: Right arm, BP Position: Sitting) Comment: pt is asymptomatic Pulse 85 Temp 98 F (36.7 C) (Oral) Resp 16 Ht 1.753 m (5' 9 ) Wt 60.8 kg (134 lb) BMI 19.79 kg/m Smoking Status Former on room air HEART: regular rate and rhythm. No murmurs, rubs or gallops. LUNGS: Breathing non-labored, lungs clear. ABDOMEN: Abdomen soft, non-tender, non-distended. Bowel sounds present in all 4 quadrants. EXTREMITIES: No cyanosis, clubbing or edema. INCISIONS: clean, dry and well healed Imaging Pre removal CXR show lungs are well expanded and clear. No pneumothorax following chest tube removal. Assessment/Plan: 67 y.o. male former smoker who is status post robotic assisted thoracoscopic right upper lobe wedge resection for a lung nodule on 09/09/22. [facility]. 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 1. All relevant imaging and data reviewed by myself and Kadie Laurent MD. Chest tube removed with stable follow up chest xray. Benign pathology reviewed with patient. Per patient preference, he can follow up with PCP for suture removal in 2 weeks and locally for continued nodule surveillance 2. Advised to stop tramadol due to side effects. 7 day prescription provided for acetaminophen with codeine. Wean to OTC medications as tolerated. COLETTE Pedro # [id number] documented in this encounter [facility] 09-12-2022 Miscellaneous Notes [facility] Inpatient PCRM Discharge Note Patient discussed in medical rounds for discharge to home with Mini Loree chest tube. PCRM met with the patient/family/spouse to discuss final discharge plan. Services for Discharge No CASANDRA or DME needs at [place]. Home care not needed family to manage drain Consults with Final Discharge Recommendations NA Lines/Tubes/Drains/Wounds/Suppli es Mini Loree device and supplies sent with the patient Medications No barriers anticipated in obtaining discharge medications. No prior authorizations anticipated. Reconciliation of medications to be completed by the medical team. Medication List START taking these medications Acetaminophen 325 MG tablet Commonly known as: TYLENOL Take 2 tablets by mouth every 6 hours for 7 days. docusate 100 MG CAPS Take 1 capsule by mouth 2 times daily for 7 days. Polyethylene glycol 17 g PACK packet Commonly known as: MIRALAX Take 1 packet by mouth daily. Sennosides 17.2 MG TABS Commonly known as: SENOKOT Take 1 tablet by mouth every 12 hours for 7 days. traMADol 50 MG TABS Commonly known as: ULTRAM Take 1 tablet by mouth every 4 hours as needed for Moderate Pain or Severe Pain for up to 5 days. CONTINUE taking these medications fluticasone 50 MCG/ACT SUSP nasal spray Commonly known as: FLONASE hydroCHLOROthiazide 25 MG TABS Commonly known as: HYDRODIURIL Lisinopril 10 MG TABS Commonly known as: PRINIVIL Multivitamin w/ minerals TABS Medication Instructions: PAIN MEDICATION: -A prescription for pain medicine will be sent home with you. Do not drive while taking prescription pain medicine. Eat when taking pain medicines to avoid nausea. Watch for constipation. Eat plenty of fruits, vegetables, juices, and drink 6 to 8 glasses of water each day. -Take a stool softener twice a day as long as you remain on pain medicine. If you do not have a bowel movement within 5 days of your surgery, please take milk of magnesia. If you do not have a bowel movement within 12 hours of milk of magnesia, call the office. -you can take acetaminophen (Tylenol) and ibuprofen (Advil, Motrin) in addition to your prescription pain medication if you have no other contraindications to those medications. Use these medications to help you need less narcotic pain medication. -you can start to wean yourself off the narcotic pain medication as soon as you feel comfortable by taking a smaller dose and/or increasing the number of hours in between doses. Where to Get Your Medications These medications were sent to [facility]/pharmacy #[id number] [place] [address] - [address] [facility] [facility] [id number] docusate 100 MG CAPS Sennosides 17.2 MG TABS traMADol 50 MG TABS Durable Medical Equipment As care center manager Choice Was Patient Choice Provided: N/A Transportation Transportation will be provided by Family. Education Discharge education provided by the medical team and updated in the After Visit Summary. Follow Up(s) Any follow up requested by the medical team arranged. Appointments in the After Visit Summary. The PCRM has updated the patient's nurse Linda Martinez RN regarding the final discharge plan. Risk of Readmission: 5.5 Category Reference: Low: 0% - 5% Medium - Low: 5.1% - 10% Medium - High: 10.1% - 16% High: 16.1% - 100% Readmission Risk Interventions Documented: Yes No other discharge needs have been identified at this time. This plan was developed in collaboration with the patient and caregiver/preferred decision maker. Patient and family are in agreement with final discharge plan. Please refer to AVS and medical record for additional information. Patient instructed to call with questions. PCRM will continue to follow with medical team for any additional discharge planning needs. RUTHANN Ramos RN Patient Care Liquor Inspector Orthopaedics and Plastic Surgery If any changes to this individualized plan of care during evening and weekend hours and assistance is needed, please page the regional geodetic advisor PCRM at [phone]. 09/12/22 1627 Referral Information Arrived From operating room Final Discharge Planning Discharge Disposition Home Services at Discharge Wound/drain/line/ostomy-supplies CM/SW AVS Portion Completed Yes Plan Plan Patient to Dc to home today with Mini Loree device and follow up with T/S moved to Thursday Patient/Family In Agreement With Plan yes Transport Request Dispatcher Called No Transfer Mode wheelchair Mode of Transfer private vehicle Accompanied By family member Problem: Patient Care Overview Goal: Plan of Care Review Outcome: Adequate for Discharge Goal: Individualization & Mutuality Outcome: Adequate for Discharge Goal: Discharge Needs Assessment Outcome: Adequate for Discharge Goal: Interdisciplinary Rounds/Family Conf Outcome: Adequate for Discharge Problem: Pain, Acute (Adult) Goal: Identify Related Risk Factors and Signs and Symptoms Description: Related risk factors and signs and symptoms are identified upon initiation of Human Response Clinical Practice Guideline (CPG) Outcome: Adequate for Discharge Goal: Acceptable Pain Control/Comfort Level Description: Patient will demonstrate the desired outcomes by discharge/transition of care. Outcome: Adequate for Discharge Problem: Infection, Risk/Actual (Adult) Goal: Identify Related Risk Factors and Signs and Symptoms Description: Related risk factors and signs and symptoms are identified upon initiation of Human Response Clinical Practice Guideline (CPG) Outcome: Adequate for Discharge Goal: Infection Prevention/Resolution Description: Patient will demonstrate the desired outcomes by discharge/transition of care. Outcome: Adequate for Discharge Problem: Chest Tube Drainage Device (Adult) Goal: Signs and Symptoms of Listed Potential Problems Will be Absent, Minimized or Managed (Chest Tube Drainage Device) Description: Signs and symptoms of listed potential problems will be absent, minimized or managed by discharge/transition of care (reference Chest Tube Drainage Device (Adult) CPG). Outcome: Adequate for Discharge Reason for consultation: Patient Quality LOS: 1 Assessment- David Salazar seen by Clinical Nurse Specialist for quality rounds. Plan of care- Clinical Nurse Specialist recommends to continue to optimize post operative care. Patient had minimal complaints of pain, 4/10, well controlled with current pain meds. Provided patient with incentive spirometer. He was able to take full, deep breaths with no issues. He was up to chair and had been ambulating in hallway. No complaints at this time. Please call [phone] with quality related questions. A total of 10 minutes were spent with patient and/or nurse. PCRM Initial Assessment Met with David Salazar to complete the initial assessment. Explained role and function of PCRM in multidisciplinary team. Contact number provided for questions. Demographic information reviewed with patient/family and confirmed as correct. Reason for Admission: POD #1 Flexible right bronchoscopy, robotic assisted right upper lobe wedge resection and lymph node dissection. Estimated length of stay: DC POD 2-3 Advanced directives Patient does not have Advanced Directives on File SW to complete at later time when spouse is available. Lines/Drains/Tubes Chest tube at this time with +1 leak. Will be removed prior to DC. Initial PCRM Discharge Planning Anticipate DC to home POD 2-3 pending resolution of air leak and successful removal of chest tube. Final plan will be determined closer to discharge, pending therapy and medical team recommendations. Patient/family verbalized understanding and agreement with the plan of care. Patient/family have no questions at this time. PCRM will continue to follow patient with multidisciplinary team for ongoing assessment of needs and for discharge planning. Medical team updated. RUTHANN Ramos RN Patient Care Liquor Inspector Orthopaedics and Plastic Surgery 09/10/22 1035 Referral Information Arrived From operating room Readmission Information Was patient readmitted within 30 Days? No Information Source Information Source patient Information Source Name David Salazar Information Source Number See [facility] Outpatient Providers Outpatient Providers Updated In IHIS Yes Contact Information Debone Processing Supervisor/SW Added to Care Team Yes This Hims Manager is Primary Debone Processing Supervisor/SW Yes Debone Processing Supervisor Name Jibmo Ulrich for Evelin Angeles Debone Processing Supervisor's Social Work Contact Name Radha Armstrong Manager Clinical Research's Phone Number [phone] Living Environment Lives With child(jay jay), adult;spouse Living Arrangements house (2 level home with 2 steps ingress and 12 steps up to bed and bath .) Provides Primary Care For no one Primary Care Provided By self Support System Immediate family Able to Return to Prior Arrangements yes Functional Status Patient's Functional Status Prior To This Admission? Independent Changes Observed Since Admission? No Changes Observed Concerns With Patient Being Able To Care For Themselves At Discharge? Has Assistance (Friend, Family, Skilled Provider) Who Is Patient's Primary Contact For Discharge Planning, Education And Care For Discharge? Spouse is home able to assist 24/7 and provide transport Can Support Person Meet The Care Needs Of The Patient? Yes Employment/Financial Employed? 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 Employment/Financial Concerns no Source Of Income salary/wages Financial Concerns none Insurance Medical Insurance Verified Yes Prescription Coverage Yes Pharmacy updated in [facility] ([facility]) Initial Discharge Planning Home Care Services ([facility]) No Home Therapies ([facility]) None DME ([facility]) None Medical Supplies ([facility]) None Patient Goal for Discharge Return home with assistance from family and friends Anticipated discharge disposition Home Anticipated Services at Discharge Wound/drain/line/ostomy-supplies Anticipated Changes Related to Illness none Current Discharge Risk high risk diagnoses (i.e., CHF, Stroke, DM, chronic pain, abdominal pain, nausea and vomiting);>65 years of age Transportation Available car;family or friend will provide Home Care Services ([facility]) Additional Home Care Services ([facility]) no Assessment/Concerns to be Addressed Concerns To Be Addressed denies needs/concerns at this time Problem: Patient Care Overview Goal: Plan of Care Review Outcome: Ongoing Goal: Individualization & Mutuality Outcome: Ongoing Goal: Discharge Needs Assessment Outcome: Ongoing Goal: Interdisciplinary Rounds/Family Conf Outcome: Ongoing Problem: Pain, Acute (Adult) Goal: Identify Related Risk Factors and Signs and Symptoms Description: Related risk factors and signs and symptoms are identified upon initiation of Human Response Clinical Practice Guideline (CPG) Outcome: Ongoing Goal: Acceptable Pain Control/Comfort Level Description: Patient will demonstrate the desired outcomes by discharge/transition of care. Outcome: Ongoing Problem: Infection, Risk/Actual (Adult) Goal: Identify Related Risk Factors and Signs and Symptoms Description: Related risk factors and signs and symptoms are identified upon initiation of Human Response Clinical Practice Guideline (CPG) Outcome: Ongoing Goal: Infection Prevention/Resolution Description: Patient will demonstrate the desired outcomes by discharge/transition of care. Outcome: Ongoing Problem: Chest Tube Drainage Device (Adult) Goal: Signs and Symptoms of Listed Potential Problems Will be Absent, Minimized or Managed (Chest Tube Drainage Device) Description: Signs and symptoms of listed potential problems will be absent, minimized or managed by discharge/transition of care (reference Chest Tube Drainage Device (Adult) CPG). Outcome: Ongoing Problem: Pain, Acute (Adult) Goal: Identify Related Risk Factors and Signs and Symptoms Description: Related risk factors and signs and symptoms are identified upon initiation of Human Response Clinical Practice Guideline (CPG) Outcome: Ongoing Problem: Pain, Acute (Adult) Goal: Acceptable Pain Control/Comfort Level Description: Patient will demonstrate the desired outcomes by discharge/transition of care. Outcome: Ongoing Problem: Infection, Risk/Actual (Adult) Goal: Identify Related Risk Factors and Signs and Symptoms Description: Related risk factors and signs and symptoms are identified upon initiation of Human Response Clinical Practice Guideline (CPG) Outcome: Ongoing Problem: Chest Tube Drainage Device (Adult) Goal: Signs and Symptoms of Listed Potential Problems Will be Absent, Minimized or Managed (Chest Tube Drainage Device) Description: Signs and symptoms of listed potential problems will be absent, minimized or managed by discharge/transition of care (reference Chest Tube Drainage Device (Adult) CPG). Outcome: Ongoing I certify that this patient requires inpatient services at this time. I anticipate the expected length of stay will include at least two midnights. Inpatient services are due to the following medical concerns ; lung nodule s/p flexible bronchoscopy, right robotic assisted right upper lobe wedge resection and lymph node dissection. Plans for post hospitalization care will be discharge to home. 1554 Paged Allison Carter that xray is complete. 1555 Xray cleared by Allison Carter. Thoracic Surgery Operative Report Date: September 09, 2022. Preoperative Diagnosis: Right Upper Lobe Lung Nodule. Postoperative Diagnosis: Right Upper Lobe Lung Nodule. Procedure Performed: 1. Flexible Bronchoscopy. 2. Robotic-Assisted Thoracoscopy. 3. Right Upper Lobe Wedge Resection. 4. Lymph Node Dissection. 5. Cryoablation of Intercostal Nerves T8- T6. Intraoperative Findings: Surgeon: Kadie Laurent M.D. Certified Registered Nurse Practitioner: Susana Christensen MD and Allison Carter PA-C. Anesthesia Type: General Anesthesia. Estimated Blood Loss: Minimal. Intravenous Fluid: See Anesthesia Record. Specimens: 1. Right Upper Lobe Wedge Resection. 2. Level 7 Lymph Node. 3. Level 4 R Lymph Node. 4. Level 10 R Lymph Node. Drains: 32 Slovenian Chest Tube. Complications: None. Disposition: The patient tolerated the operation well. He was extubated and transported the postanesthesia care unit in stable condition. Indication for the procedure: David Salazar is a 67 y.o. male former smoker with history of COPD who presents with a 1.3 x 1.0 cm right upper lobe lung nodule. The lung nodule is hypermetabolic (SUVmax 5.9), which is suspicious for malignancy. A CT guided biopsy was not diagnostic. The right upper lobe lung nodule is concerning for a non-small cell lung cancer. The lung function is acceptable for lobectomy. At this time, I feel we should proceed with robotic assisted right upper lobe wedge resection and possible upper lobectomy. I discussed with the patient that risks of lung surgery may include bleeding, infection, pneumonia, heart complications, blood clots, respiratory failure, post operative neuropathic pain, air leak, chyle leak, and . The patient is aware of these risks and has agreed to proceed with this major elective surgery Description of the operation: David Medina was transferred to the operating room at the [facility]. Intravenous lines were placed the anesthesia team. The patient was intubated with a single-lumen endotracheal tube by anesthesia. General anesthesia was induced. The patient received 900 mg of IV Clindamycin prior to the incision for antimicrobial prophylaxis. Compression boots were placed in the lower extremities with DVT prophylaxis. After a time out, a flexible bronchoscopy was performed. The flexible bronchoscope was advanced through the endotracheal tube advanced to the silverio. The silverio appeared to be sharp. The right mainstem bronchus was within normal limits. The right upper lobe bronchial orifice was normal. The bronchus intermedius was normal. The right middle lobe and right lower lobe bronchial orifices were normal. Left mainstem bronchus was entered and was normal. The left upper lobe and left lower lobe bronchial orifices were normal. The patient was then intubated with a double-lumen endotracheal tube and positioned in the left lateral decubitus position with the right chest facing upward. The right chest was prepped and draped in the standard sterile surgical fashion. A total of three 8 mm and one 12 mm Robotic trocars were placed along the 8th intercostal space approximately 8-10 cm apart. A 12 mm Air Seal Port was placed in the 10 th intercostal space. The 8mm 30 degree robotic camera was placed thorough the posterior axillary line trocar and the right hemithorax was inspected and there was no evidence of pleural effusion or pleural dissemination. The right upper lobe lung carcinoma was located in the apical segment. The Yamsaferinci Xi robot was then docked to the robotic ports. A Cadiere grasper, a tip up fenestrated lung grasper, and a bipolar grapser were placed through the ports. A wedge resection of the right upper lobe lung nodule was performed with 5 applications of the the robotic stapler. The right upper lobe wedge specimen was then placed in a laparoscopic specimen bag and removed through [id number] intercostal space thoracoscopic incision. The intraoperative frozen section was consistent with a granuloma. The final pathology is pending. A lymph node dissection was performed. Levels 4 R, 7, 10 R, and 8 were dissected and sent for permament histology. Intercostal nerve blocks were performed from T3-T9 with 0.2% Ropivacaine. Cryoablation was performed from T8-T6 with the cryoprobe for 2 minutes at each level. We then irrigated the right chest cavity with warm crystalloid solution. There was no evidence of bleeding. A 32 Slovenian straight chest tube was placed through the 8th intercostal space thoracoscopic port and secured with a #0 silk suture. The chest tube was connected to Pleur-evac and placed on -10 cm of suction. The right lung was re-expanded under direct vision. The remaining thoracoscopic incisions were closed in 3 layers. The muscle layers were reapproximated with a running with a #0 Vicryl suture. The subcutaneous layer was reapproximated with a running 2-0 suture. The skin was reapproximated with 4-0 Monocryl sutures for the entire procedure and participated in the entire procedure. There were no intraoperative complications. The patient was extubated and transported to postanesthesia care unit in stable condition. Allison Carter PA-C served as the rn first assistant for the case. There was no available qualified resident for the case. She docked the DaVinci Robot and performed the instrument exchanges. Kadie Laurent M.D. David Salazar ([id number]) PRE OPERATIVE DIAGNOSIS Lung nodule [R91.1] POST OPERATIVE DIAGNOSIS Post-Op Diagnosis Codes: * Lung nodule [R91.1] PROCEDURE PERFORMED 1. Flexible bronchoscopy. 2. Right robotic-assisted thoracoscopy. 3. Right upper lobe wedge resection. 4. Lymph node dissection. PRIMARY CLOSURE Yes INTRAOPERATIVE FINDINGS Intra-operative frozen pathology of right upper lobe wedge resection negative for malignant cells. SURGEON Surgeon(s) and Role: * Kadie Laurent MD - Primary ANESTHESIOLOGIST Anesthesiologist: Elvira Gaffney MD Return Clerk Assisting: Jigar Beauchamp MD; Kelsey Galvan MD Student Anesthesiologist Certified Registered Nurse Practitioner: Renan Ojeda SURGICAL STAFF Custodial Foreman: Meagan Orellana RN Physician Certified Registered Nurse Practitioner: JENNIFER Valverde Relief Custodial Foreman: Kary Solis Relief Scrub: Racheal Verdugo Scrub Person: Teto Warner Fellow: Susana Kay MD COMPLICATIONS None ESTIMATED BLOOD LOSS 20 ml SPECIMENS See below: ID Type Source Tests Collected by Time Destination 1 : Right Upper Lobe Wedge Frozen SURG PATH SURG PATH REQUEST Kadie Laurent MD 09/09/2022 1343 2 : Level 4R, Lymph Node #1 Permanent SURG PATH SURG PATH REQUEST Kadie Laurent MD 09/09/2022 1352 3 : Level 4R, Lymph Node #2 Permanent SURG PATH SURG PATH REQUEST Kadie Laurent MD 09/09/2022 1352 4 : Level 4R, Lymph Node #3 Permanent SURG PATH SURG PATH REQUEST Kadie Laurent MD 09/09/2022 1352 5 : Level 4R, Lymph Node #4 Permanent SURG PATH SURG PATH REQUEST Kadie Laurent MD 09/09/2022 1354 6 : Level 8, Lymph Node #1 Permanent SURG PATH SURG PATH REQUEST Kadie Laurent MD 09/09/2022 1359 7 : Level 8, Lymph Node #2 Permanent SURG PATH SURG PATH REQUEST Kadie Laurent MD 09/09/2022 1359 8 : Level 10R, Lymph Node #1 Permanent SURG PATH SURG PATH REQUEST Kadie Laurent MD 09/09/2022 1401 JENNIFER Valverde September 09, 2022 2:21 PM documented in this encounter [facility] 09-12-2022 Nurse Note [facility] Inpatient PCRM Discharge Note Patient discussed in medical rounds for discharge to home with Mini Loree chest tube. PCRM met with the patient/family/spouse to discuss final discharge plan. Services for Discharge No CASANDRA or DME needs at [place]. Home care not needed family to manage drain Consults with Final Discharge Recommendations NA Lines/Tubes/Drains/Wounds/Suppli es Mini Loree device and supplies sent with the patient Medications No barriers anticipated in obtaining discharge medications. No prior authorizations anticipated. Reconciliation of medications to be completed by the medical team. Medication List START taking these medications Acetaminophen 325 MG tablet Commonly known as: TYLENOL Take 2 tablets by mouth every 6 hours for 7 days. docusate 100 MG CAPS Take 1 capsule by mouth 2 times daily for 7 days. Polyethylene glycol 17 g PACK packet Commonly known as: MIRALAX Take 1 packet by mouth daily. Sennosides 17.2 MG TABS Commonly known as: SENOKOT Take 1 tablet by mouth every 12 hours for 7 days. traMADol 50 MG TABS Commonly known as: ULTRAM Take 1 tablet by mouth every 4 hours as needed for Moderate Pain or Severe Pain for up to 5 days. CONTINUE taking these medications fluticasone 50 MCG/ACT SUSP nasal spray Commonly known as: FLONASE hydroCHLOROthiazide 25 MG TABS Commonly known as: HYDRODIURIL Lisinopril 10 MG TABS Commonly known as: PRINIVIL Multivitamin w/ minerals TABS Medication Instructions: PAIN MEDICATION: -A prescription for pain medicine will be sent home with you. Do not drive while taking prescription pain medicine. Eat when taking pain medicines to avoid nausea. Watch for constipation. Eat plenty of fruits, vegetables, juices, and drink 6 to 8 glasses of water each day. -Take a stool softener twice a day as long as you remain on pain medicine. If you do not have a bowel movement within 5 days of your surgery, please take milk of magnesia. If you do not have a bowel movement within 12 hours of milk of magnesia, call the office. -you can take acetaminophen (Tylenol) and ibuprofen (Advil, Motrin) in addition to your prescription pain medication if you have no other contraindications to those medications. Use these medications to help you need less narcotic pain medication. -you can start to wean yourself off the narcotic pain medication as soon as you feel comfortable by taking a smaller dose and/or increasing the number of hours in between doses. Where to Get Your Medications These medications were sent to [facility]/pharmacy #[id number] [place] [address] - [address] [facility] [address] [facility] [id number] docusate 100 MG CAPS Sennosides 17.2 MG TABS traMADol 50 MG TABS Durable Medical Equipment As care center manager Choice Was Patient Choice Provided: N/A Transportation Transportation will be provided by Family. Education Discharge education provided by the medical team and updated in the After Visit Summary. Follow Up(s) Any follow up requested by the medical team arranged. Appointments in the After Visit Summary. The PCRM has updated the patient's nurse Linda Martinez RN regarding the final discharge plan. Risk of Readmission: 5.5 Category Reference: Low: 0% - 5% Medium - Low: 5.1% - 10% Medium - High: 10.1% - 16% High: 16.1% - 100% Readmission Risk Interventions Documented: Yes No other discharge needs have been identified at this time. This plan was developed in collaboration with the patient and caregiver/preferred decision maker. Patient and family are in agreement with final discharge plan. Please refer to AVS and medical record for additional information. Patient instructed to call with questions. PCRM will continue to follow with medical team for any additional discharge planning needs. RUTHANN Ramos RN Patient Care Liquor Inspector Orthopaedics and Plastic Surgery If any changes to this individualized plan of care during evening and weekend hours and assistance is needed, please page the regional geodetic advisor PCRM at [phone]. 09/12/22 1627 Referral Information Arrived From operating room Final Discharge Planning Discharge Disposition Home Services at Discharge Wound/drain/line/ostomy-supplies CM/SW AVS Portion Completed Yes Plan Plan Patient to Dc to home today with Mini Loree device and follow up with T/S moved to Thursday Patient/Family In Agreement With Plan yes Transport Request Dispatcher Called No Transfer Mode wheelchair Mode of Transfer private vehicle Accompanied By family member [facility] 09-12-2022 Plan of care note Problem: Patient Care Overview Goal: Plan of Care Review Outcome: Adequate for Discharge Goal: Individualization & Mutuality Outcome: Adequate for Discharge Goal: Discharge Needs Assessment Outcome: Adequate for Discharge Goal: Interdisciplinary Rounds/Family Conf Outcome: Adequate for Discharge Problem: Pain, Acute (Adult) Goal: Identify Related Risk Factors and Signs and Symptoms Description: Related risk factors and signs and symptoms are identified upon initiation of Human Response Clinical Practice Guideline (CPG) Outcome: Adequate for Discharge Goal: Acceptable Pain Control/Comfort Level Description: Patient will demonstrate the desired outcomes by discharge/transition of care. Outcome: Adequate for Discharge Problem: Infection, Risk/Actual (Adult) Goal: Identify Related Risk Factors and Signs and Symptoms Description: Related risk factors and signs and symptoms are identified upon initiation of Human Response Clinical Practice Guideline (CPG) Outcome: Adequate for Discharge Goal: Infection Prevention/Resolution Description: Patient will demonstrate the desired outcomes by discharge/transition of care. Outcome: Adequate for Discharge Problem: Chest Tube Drainage Device (Adult) Goal: Signs and Symptoms of Listed Potential Problems Will be Absent, Minimized or Managed (Chest Tube Drainage Device) Description: Signs and symptoms of listed potential problems will be absent, minimized or managed by discharge/transition of care (reference Chest Tube Drainage Device (Adult) CPG). Outcome: Adequate for Discharge [facility] 09-11-2022 History of Present illness Narrative Introduced self and role of the property management assistant to patient/family. Provided emotional and spiritual support and the patient/family responded by sharing their experience and discussed the following: Pt sitting in chair, no family present. Pt reports that he is doing ok today and has support outside the hospital. Offered active listening, comfort, support and prayer. Patient/family encouraged to request a property management assistant as needed. Chaplains are available in-house 24 hours a day and 7 days a week. For urgent matters in the [facility], please page [phone]. If the request is not urgent, please enter a consult. Consults are responded to within 24 hours. Lab Analyst Martina Craven, DDiv,MAHL, BCC Senior [facility] Josue 12, 18, 19 13/10 On-Call Pager [facility] ([phone]) 09/11/22 1100 Clinical Encounter Type Visited With Patient Visit Type Introduction Pastoral Time Spent 15 min Restorationism Encounters Restorationism Needs Prayer Spiritual Assessment Emotional Observation Coping well Hope Observation Hopeful and accepting Support Observation By Family Interventions Provided Active listening;Prayer;Supportive presence Facilitated Verbalization of feelings Explored Expectations Time Buyer Education Time Buyer Service Available Yes Educated Patient Outcomes Patient Outcomes Articulated purpose/meaning Plan of Care Continue Visiting PRN Inpatient Progress Note: David Salazar Date: 09/11/2022 10:48 AM Chief Complaint: right lung nodule Primary Surgeon: Kadie Laurent MD [place]: David Salazar is a 67 y.o. male former smoker with a past medical history of COPD, hypertension, kidney stones, hepatitis, and multiple lung nodules who was referred by Dr. Alyssa Horowitz for evaluation of a right upper lobe (RUL) lung nodule. In review, CT lung cancer screening on 06/03/22 demonstrated multiple new noncalcified nodules, a spiculated 1.37 x 1.07 cm nodule in the posterior right upper lobe, a 2.53 x 1.7 cm nodule in the right middle lobe, noncalcified 5 and 6 mm nodules in the left lower lobe and a 1.9 x 1 cm nodule in the lingula. PET scan on 06/17/22 hypermetabolic activity of the RUL nodule (SUV 5.9) and mild hypermetabolic activity of the RML nodule (SUV 2.0) and PAULINA nodule (SUV 1.4). CT Guided biopsy was completed of the RUL nodule on 07/10/22 but was non-diagnostic. He was taken to the operating room on 09/09/22 for a flexible bronchoscopy, robotic assisted thoracoscopic right upper lobe wedge resection and lymph node dissection. Subjective: No acute events overnight. Pain well controlled. OOB to chair for rounds. Objective: Vital Signs: Blood pressure 126/75, pulse 80, temperature 98.6 F (37 C), temperature source Oral, resp. rate 16, height 1.753 m (5' 9 ), weight 59.9 kg (132 lb 1.6 oz), SpO2 98 %. on RA. Right chest tube output: 130/235/70 ml, to -10 cm suction, +1 intermittent air leak UOP: /1050 ml 24 hour I/O: Intake/Output Summary (Last 24 hours) at 09/11/2022 1048 Last data filed at 09/11/2022 0900 Gross per 24 hour Intake 850 ml Output 3440 ml Net -2590 ml Physical Exam: Alert and oriented x 3 with no acute distress. Breathing non-labored, conversational without dyspnea. Right chest tube is to -10 cm suction with +1 intermittent air leak. Surgical incisions well approximated, without erythema, edema, or exudate. Abdomen soft, non-tender, non-distended. No pretibial or pedal edema noted. Laboratory Data: Pathology, 09/09/22: pending Cytology: N/A Micro: N/A Radiology Studies: 09/11/2022 CXR: stable right chest tube, final read pending Consults: Pulmonary Rehab Respiratory therapy Assessment/Plan: Problem Lung Nodule POD #2 robotic assisted thoracoscopic right upper lobe wedge resection and lymph node dissection. Intraoperative frozen pathology was consistent with a granuloma, final pathology pending. Chest tube placed to water seal today for continued leak. Continue to encourage aggressive pulmonary toilet and monitor daily chest xray. Leukocytosis WBC improved to 14.6 today, febrile. Likely post operative reaction. Continue to monitor daily labs. At Moderate Risk for Deep Venous Thrombosis Continue prophylactic heparin SQ, SCDs while in bed, and encourage ambulation. Acute Post-Operative Pain Pain well controlled with scheduled acetaminophen and prn tramadol. Continue to monitor and adjust as necessary. Health Education/Counseling Plan of care discussed with patient. Continue med surg level of care. Earliest expected discharge date is 09/12/22. Essential Hypertension Hold home lisinopril and home hydrochlorothiazide. Resume as tolerated. The patient was seen, images reviewed, and plan of care discussed with Dr. Perales, who is regional geodetic advisor for Kadie Laurent MD. Evelin Mariee APRN-FIRE SUPERVISOR #[id number] Inpatient Cardiopulmonary Rehab Consultation AND Activity Session Completed. RN approved, as tolerated, and patient agreeable to visit. Patient reports feeling OK without complaints. Activity Session Vitals: 09/11/22 0853 09/11/22 0904 Vital Signs Pulse (Heart Rate) 75 (pre-amb) 80 (post-amb) Heart Rate Source Monitor Monitor BP 123/66 126/75 MAP (mmHg) 89 mmHg 91 mmHg BP Method Automatic Automatic BP Location Right arm Right arm BP Position Sitting Sitting O2 Sat (%) 98 % 98 % O2 Device room air room air Activity/Level of Assistance Amb in lenz/independent, 2-ww Ambulation Distance (feet) 250 Symptoms Noted During/After Activity none Positioning Seated in chair, call light within reach Chest tube to suction, telemetry all intact upon leaving the room Activity session details: Patient ambulated independently and did not report to have any symptoms. RN notified/aware. Encouraged continued ambulation and discussed appropriate activity progression. Discharge education provided to the patient. Printed materials Provided and Reviewed: After Lung Surgery Handout. Patient s questions/concerns were addressed and topics below were discussed. 1. Activity Restrictions 2. Rest Time 3. Activity Guidelines/Recommendations 4. Nutrition 5. Medications 6. Coughing and Deep Breathing 7. Incision Care 8. Post Surgery Blues 9. When to Call the Doctor We will continue to follow up with patient as needed until discharge for education review and activity progression. Jackie Carballo, MS ([phone]) IP Cardiopulmonary Rehab Psychosocial Assessment Per chart review, patient is a 67 y.o., male, who was admitted for status post 'POD #1 Flexible right bronchoscopy, robotic assisted right upper lobe wedge resection and lymph node dissection,' per Shayy CASTILLO FIRE SUPERVISOR note on this date. 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 Patient was alert and oriented x3 and agreeable to SW visit. Contact Information Debone Processing Supervisor Name: Jimbo Debone Processing Supervisor's Social Work Contact Name: Radha Manager Clinical Research's Advance Directives Type of Advance Directives Currently on File: none Patient Requesting to Complete/Update the Following Advance Directive: Not at this time Advance Directive Discussion: Per chart review, patient does not have any advance directives on file, however, patient reports that they have already completed advance directives and states the document(s) are at home. SW reviewed that without completed document on file, per [place] Law, Spouse - Ramona Salazar [phone] would be their Legal NOK for decision making. SW requested patient provide the hospital with a copy of the document when possible so that it can be scanned into their medical record. Patient agreeable to this plan. Legal NOK: Spouse - Ramona Salazar [phone] Emotional/Psychological Affect: no deficits noted Mood: congruent to situation Verbal Skills: no deficits noted Current Interpersonal Conduct/Behavior: appropriate to situation, cooperative Mental Health Conditions/Symptoms: none Thought Process Alterations: no deficits noted Previous Mental Health Treatment: none Emotional/Psychological Comments: Pt denies Distress Screen: In general, would you say your health is:: Very good In general, would you say your quality of life is:: Very good In general, rate your physical health?: Very good In general, rate your mental health, mood and ability to think?: Very good In general, how would you rate your satisfaction with your social activities and relationships?: Very good To what extent are you able to carry out your everyday physical activities such as walking, climbing stairs, carrying groceries, or moving a chair?: Mostly In general, please rate how well you carry out your usual social activities and roles. (This includes activities at home, at work and in your community, and responsibilities as a parent, child, spouse, employee, friend, etc.): Excellent In general, how satisfied have you been with your sex life?: Mostly In general, how satisfied have you been with your spiritual life?: (!) A little How would you rate your pain on average?: 0 How would you rate your fatigue on average?: (!) Moderate How often have you been bothered by emotional problems such as feeling anxious, depressed or irritable?: Rarely Patient Coping/Stress Concerns Patient Coping/Stress Concerns: No Patient Personal Strengths: able to adapt, future/goal oriented Sources Of Support: spouse Reaction To Health Status: accepting Understanding Of Condition And Treatment: adequate understanding of medical condition, adequate understanding of treatment Values/Beliefs (F) Vandana Importance: None, made aware of available property management assistant support. 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 Employment/Financial Concerns: no Employment/Financial Comments: No financial concerns Source Of Income: salary/wages Financial Concerns: none Food Insecurity Within the past 12 months, you worried that your food would run out before you got the money to buy more.: Never true Within the past 12 months, the food you bought just didn't last and you didn't have money to get more.: Never true Housing Stability In the last 12 months, was there a time when you were not able to pay the mortgage or rent on time?: No In the last 12 months, how many places have you lived?: 1 In the last 12 months, was there a time when you did not have a steady place to sleep or slept in a detention (including now)?: No Transportation Needs In the past 12 months, has lack of transportation kept you from medical appointments or from getting medications?: No In the past 12 months, has lack of transportation kept you from meetings, work, or from getting things needed for daily living?: No Alcohol Use Q1: How often do you have a drink containing alcohol?: Never Q2: How many drinks containing alcohol do you have on a typical day when you are drinking?: Patient does not drink Q3: How often do you have six or more drinks on one occasion?: Never Substance Use How many times in the past year have you used prescription drugs for non-medical reasons? : Never How many times in the past year have you used illegal drugs?: Never Community Resources: None Anticipated Discharge Plan Anticipated Discharge Plan: Home Discharge Considerations Pt reports living at home with his daughter and spouse in a two story home. Bed and bathroom are upstairs. There are two steps to enter the home. will provide transportation home. Medical Team Considerations: None SW Interventions/Recommendations: Service SW name and contact information placed on white board in patient's room to contact as needed. SW will continue to remain available to provide assistance and support as needed during inpatient stay. MICHAEL Macias-Cristiane Clinical Manager Clinical Research Pager: [phone] [phone]: [phone] For Evening (4:30pm-8am) and Weekend SW needs please call [phone] or page [phone] Addendum [id number] SW returned to pt's room per request of pt to follow up on advance directives. Pt's states she left the paperwork at home. SW advised she can bring to follow up appointment and we will scan in documents then. Pt and verbalize understanding. Inpatient Progress Note: David Salazar Date: 09/10/2022 8:49 AM Chief Complaint: Right Lung nodule Primary Surgeon: Kadie Laurent MD [place]: David Salazar is a 67 y.o. male, former smoker, quit 03/06/2022 with a past medical history of COPD, hypertension, kidney stones, hepatitis, and multiple lung nodules who was referred by Dr. Alyssa Horowitz for evaluation of a right upper lobe (RUL) lung nodule. In review, CT lung screening on 06/03/2022 demonstrated multiple new noncalcified nodule, a spiculated 1.37 x 1.07 cm nodule in the posterior right upper lobe, a 2.53 x 1.70 cm nodule in the right middle lobe, noncalcified 5 and 6 mm nodules in the left lower lobe and a 1.90 x 1.0 cm nodule in the lingula. Patient had a PET 06/17/2022 which noted hypermetabolic activity of the RUL nodule (SUV 5.9) and mild hypermetabolic activity of the RML nodule (SUV 2.0) and PAULINA nodule (SUV 1.4). CT Guided biopsy was completed of the RUL nodule on 07/10/2022 but was non-diagnostic. He was taken to the operating room on 09/09/2022 for a flexible bronchoscopy, Right robotic assisted right upper lobe wedge resection and lymph node dissection. Subjective: No acute events overnight. Pain well controlled. OOB to chair. Objective: Vital Signs: Blood pressure 119/58, pulse 67, temperature 98.3 F (36.8 C), temperature source Oral, resp. rate 16, height 1.753 m (5' 9 ), weight 59.9 kg (132 lb 1.6 oz), SpO2 94 %. on RA. Right chest tube output: 215 ml; -10 cm suction, +1 continuous air leak. UOP: 1425 ml 24 hour I/O: Intake/Output Summary (Last 24 hours) at 09/10/2022 0849 Last data filed at 09/10/2022 0846 Gross per 24 hour Intake 2705.28 ml Output 1720 ml Net 985.28 ml Physical Exam: Alert and oriented x 3 with no acute distress. Breathing non-labored, on room air, conversational without dyspnea. Lungs clear bilaterally. Right chest tube is to -10 cm suction with +1 continuous air leak. Surgical incisions well approximated, without erythema, edema, or exudate. Abdomen soft, non-tender, non-distended. No pretibial or pedal edema noted. Laboratory Data: Pathology: 09/09/2022 pending Cytology: N/A Micro: N/A Radiology Studies: 09/09/2022 CXR:Stable CXR. Pending final radiology report. Consults: Pulmonary Rehab Respiratory therapy. Assessment/Plan: Problem Copd (Chronic Obstructive Pulmonary Disease) No home medications. Continue scheduled duonebs while inpatient. At Moderate Risk for Deep Venous Thrombosis Subcutaneous heparin TID, SCDs and ambulation encouraged. Acute Post-Operative Pain Pain well controlled. Continue scheduled Tylenol and PRN Tramadol. Continue to monitor and adjust as necessary. Health Education/Counseling Plan of care discussed with patient. Patient is agreeable and verbalizes understanding. Patient is Med surg level of care. Earliest expected discharge date is 09/10/2022. Lung Nodule POD #1 Flexible right bronchoscopy, robotic assisted right upper lobe wedge resection and lymph node dissection. Final pathology pending. Continue chest tube to -10 cm suction; +1 leak. Continue to encourage aggressive pulmonary toilet and monitor daily chest xray. Essential Hypertension IVP Metoprolol in place of home lisinopril and home hydrochlorothiazide. The patient was seen, images reviewed, and plan of care discussed with Kadie Laurent MD. Kadie Laurent MD completed daily rounds with bedside nurse Yes Shayy Purdy, CAMOUFLAGE ASSEMBLER-FIRE SUPERVISOR #[id number] Inpatient Progress Note: David Salazar Date: 09/09/2022 7:46 PM Chief Complaint: Right Lung nodule Primary Surgeon: Kadie Laurent MD [place]: David Salazar is a 67 y.o. male, former smoker, quit 03/06/2022 with a past medical history of COPD, hypertension, kidney stones, hepatitis, and multiple lung nodules who was referred by Dr. Alyssa Horowitz for evaluation of a right upper lobe (RUL) lung nodule. In review, CT lung screening on 06/03/2022 demonstrated multiple new noncalcified nodule, a spiculated 1.37 x 1.07 cm nodule in the posterior right upper lobe, a 2.53 x 1.70 cm nodule in the right middle lobe, noncalcified 5 and 6 mm nodules in the left lower lobe and a 1.90 x 1.0 cm nodule in the lingula. Patient had a PET 06/17/2022 which noted hypermetabolic activity of the RUL nodule (SUV 5.9) and mild hypermetabolic activity of the RML nodule (SUV 2.0) and PAULINA nodule (SUV 1.4). CT Guided biopsy was completed of the RUL nodule on 07/10/2022 but was non-diagnostic. He was taken to the operating room on 09/09/2022 for a flexible bronchoscopy, Right robotic assisted right upper lobe wedge resection and lymph node dissection. Subjective: no acute events in PACU. Upon arrival to the unit, he reports 5/10 right shoulder pain, controlled with current pain regimen, denies nausea and vomiting. Objective: Vital Signs: Blood pressure 154/74, pulse 79, temperature 98 F (36.7 C), temperature source Oral, resp. rate 22, height 1.753 m (5' 9 ), weight 56.9 kg (125 lb 6.4 oz), SpO2 94 %. on RA. Right chest tube output: NR/76/NR ml/-10 cm suction, +1 continuous air leak. UOP: 350/250/NR ml 24 hour I/O: 1374 ml Intake/Output Summary (Last 24 hours) at 09/09/2022 1946 Last data filed at 09/09/2022 1842 Gross per 24 hour Intake 2050 ml Output 676 ml Net 1374 ml Physical Exam: Alert and oriented x 3 with no acute distress. Breathing non-labored, on room air, conversational without dyspnea. Lungs clear bilaterally. Right chest tube is to -10 cm suction with +1 continuous air leak. Surgical incisions well approximated, without erythema, edema, or exudate. Abdomen soft, non-tender, non-distended. No pretibial or pedal edema noted. Laboratory Data: Pathology: 09/09/2022 pending. Cytology: N/A Micro: N/A Radiology Studies: 09/09/2022 CXR: Thorax: Postoperative changes overlying the right upper lobe. The lungs are otherwise clear. Suspected trace residual pleural air overlying the right lung apex. No pleural effusion. Consults: Pulmonary Rehab, Respiratory therapy. Assessment/Plan: Problem Lung Nodule POD #0 Flexible right bronchoscopy, robotic assisted right upper lobe wedge resection and lymph node dissection. Final pathology pending. Continue chest tube to -10 cm suction. Clear liquid diet. Advance as tolerated. Continue ivey catheter tonight. Assess for removal in AM. Continue to encourage aggressive pulmonary toilet and monitor daily chest xray. Copd (Chronic Obstructive Pulmonary Disease) No home medications. Continue scheduled duonebs while inpatient. At Moderate Risk for Deep Venous Thrombosis Subcutaneous heparin on POD #1, SCDs and ambulation encouraged. Acute Post-Operative Pain Pain well controlled. Continue scheduled Tylenol and PRN Tramadol. Continue to monitor and adjust as necessary. Health Education/Counseling Plan of care discussed with patient. Patient is agreeable and verbalizes understanding. Patient is Med surg level of care. Earliest expected discharge date is 09/10/2022. Essential Hypertension IVP Metoprolol in place of home lisinopril and home hydrochlorothiazide. The patient was seen, images reviewed, and plan of care discussed with Kadie Laurent MD. Kadie Laurent MD completed daily rounds with bedside nurse Jorge Ag, CAMOUFLAGE ASSEMBLER-FIRE SUPERVISOR #[id number] 09/09/22 1805 Assessment Type ## Assessment-Evaluation initial RT Intervention Assessment-Evaluation Assessment Type general RT Reason for Assessment RT Protocol Patient Ed Activity Done initial instruction Care Plan Completed yes Vitals, Reports, and Results Pulse (Heart Rate) 79 Resp Rate 22 RT Acuity Assessment Tool RT Protocol Assessment initial mMRC Dyspnea Score 0 RT Modified Foreign Score 0 Combined Dyspnea Score 0 RT Acuity Level 5 documented in this encounter [facility] 09-11-2022 Note Received is a reques t for second opinion consultation by Dr.Robert Sarmad Laurent. Slides have been received from the outside facility. Preoperative Diagnosis: Right lung mass. [facility] Lung nodule- Primary Solitary pulmonary nodule Other nonspecific abnormal finding of lung field Dyspnea on exertion Other dyspnea and respiratory abnormality Shortness of breath Lung nodule Solitary pulmonary nodule [facility] Diagnosis Lung nodule- Primary Solitary pulmonary nodule Lung nodule Solitary pulmonary nodule Acute post-operative pain At moderate risk for deep venous thrombosis Acute post-operative pain Health education/counseling Counseling NOS Essential hypertension Unspecified essential hypertension Leukocytosis Leukocytosis, unspecified CKD (chronic kidney disease) stage 2, GFR 60-89 ml/min Chronic kidney disease, Stage II (mild) [facility] Diagnosis Lung nodule Solitary pulmonary nodule [facility] Diagnosis Lung nodule- Primary Solitary pulmonary nodule Acute post-operative pain Lung nodule Solitary pulmonary nodule [facility] Name Dates Details Patient Instructions Indication:Current smoker Start:22-Feb-2021 Instruction Type:Provider Instructions for Treatment How to Access Health Informa tion Online using Patient Portal and [employer] Apps Indication:Current smoker Start:22-Feb-2021 Instruction Type:Patient Edu cation [facility]; [facility] Work Phone: Instructions* Name Dates Details Patient Instructions Indication:Current smoker Start:3-Dec-2021 Instruction Type:Provider Instructions for Treatment How to Access Health Informa tion Online using Patient Portal and [employer] Apps Indication:Current smoker Start:22-Feb-2021 Instruction Type:Patient Edu cation [facility]; [facility] Work Phone: instructions* Name Dates Details Patient Instructions Indication:Current smoker Start:11-Jul-2021 Instruction Type:Provider Instructions for Treatment How to Access Health Informa tion Online using Patient Portal and [employer] Apps Indication:Current smoker Start:11-Jul-2021 Instruction Type:Patient Education Patient Instructions Indication:Current smoker Start:13-May-2021 Instruction Type:Provider Instructions for Treatment How to Access Health Informa tion Online using Patient Portal and [employer] Apps Indication:Current smoker Start:13-May-2021 Instruction Type:Patient Education Patient Instructions Indication:Current smoker Start:22-Feb-2021 Instruction Type:Provider Instructions for Treatment How to Access Health Informa tion Online using Patient Portal and [employer] Apps Indication:Current smoker Start:22-Feb-2021 Instruction Type:Patient Education [facility]; [facility] Work Phone: instructions* Name Dates Details Patient Instructions Indication:Current smoker Start:11-Jul-2021 Instruction Type:Provider Instructions for Treatment How to Access Health Informa tion Online using Patient Portal and [employer] Apps Indication:Current smoker Start:11-Jul-2021 Instruction Type:Patient Education Patient Instructions Indication:Current smoker Start:13-May-2021 Instruction Type:Provider Instructions for Treatment How to Access Health Informa tion Online using Patient Portal and [employer] Apps Indication:Current smoker Start:13-May-2021 Instruction Type:Patient Education Patient Instructions Indication:Current smoker Start:22-Feb-2021 Instruction Type:Provider Instructions for Treatment How to Access Health Informa tion Online using Patient Portal and [employer] Apps Indication:Current smoker Start:22-Feb-2021 Instruction Type:Patient Education [facility]; [facility] Work Phone: instructions* Name Dates Details Patient Instructions Indication:Current smoker Start:13-Jan-2022 Instruction Type:Provider Instructions for Treatment How to Access Health Informa tion Online using Patient Portal and [employer] Apps Indication:Current smoker Start:13-Jan-2022 Instruction Type:Patient Education Patient Instructions Indication:Current smoker Start:11-Jul-2021 Instruction Type:Provider Instructions for Treatment How to Access Health Informa tion Online using Patient Portal and [employer] Apps Indication:Current smoker Start:11-Jul-2021 Instruction Type:Patient Education Patient Instructions Indication:Current smoker Start:13-May-2021 Instruction Type:Provider Instructions for Treatment How to Access Health Informa tion Online using Patient Portal and [employer] Apps Indication:Current smoker Start:13-May-2021 Instruction Type:Patient Education Patient Instructions Indication:Current smoker Start:22-Feb-2021 Instruction Type:Provider Instructions for Treatment How to Access Health Informa tion Online using Patient Portal and [employer] Apps Indication:Current smoker Start:22-Feb-2021 Instruction Type:Patient Education [facility]; [facility] Work Phone: instructions* Name Dates Details Patient Instructions Indication:Current smoker Start:13-Jan-2022 Instruction Type:Provider Instructions for Treatment How to Access Health Informa tion Online using Patient Portal and [employer] Apps Indication:Current smoker Start:13-Jan-2022 Instruction Type:Patient Education Patient Instructions Indication:Current smoker Start:11-Jul-2021 Instruction Type:Provider Instructions for Treatment How to Access Health Informa tion Online using Patient Portal and [employer] Apps Indication:Current smoker Start:11-Jul-2021 Instruction Type:Patient Education Patient Instructions Indication:Current smoker Start:13-May-2021 Instruction Type:Provider Instructions for Treatment How to Access Health Informa tion Online using Patient Portal and [employer] Apps Indication:Current smoker Start:13-May-2021 Instruction Type:Patient Education Patient Instructions Indication:Current smoker Start:22-Feb-2021 Instruction Type:Provider Instructions for Treatment How to Access Health Informa tion Online using Patient Portal and [employer] Apps Indication:Current smoker Start:22-Feb-2021 Instruction Type:Patient Education [facility]; [facility] Work Phone: instructions* Name Dates Details Patient Instructions Indication:Current smoker Start:13-Jan-2022 Instruction Type:Provider Instructions for Treatment How to Access Health Informa tion Online using Patient Portal and [employer] Apps Indication:Current smoker Start:13-Jan-2022 Instruction Type:Patient Education Patient Instructions Indication:Current smoker Start:11-Jul-2021 Instruction Type:Provider Instructions for Treatment How to Access Health Informa tion Online using Patient Portal and [employer] Apps Indication:Current smoker Start:11-Jul-2021 Instruction Type:Patient Education Patient Instructions Indication:Current smoker Start:13-May-2021 Instruction Type:Provider Instructions for Treatment How to Access Health Informa tion Online using Patient Portal and [employer] Apps Indication:Current smoker Start:13-May-2021 Instruction Type:Patient Education Patient Instructions Indication:Current smoker Start:22-Feb-2021 Instruction Type:Provider Instructions for Treatment How to Access Health Informa tion Online using Patient Portal and [employer] Apps Indication:Current smoker Start:22-Feb-2021 Instruction Type:Patient Education [facility]; [facility] Work Phone: instructions* Name Dates Details Patient Instructions Indication:Current smoker Start:13-Jan-2022 Instruction Type:Provider Instructions for Treatment How to Access Health Informa tion Online using Patient Portal and [employer] Apps Indication:Current smoker Start:13-Jan-2022 Instruction Type:Patient Education Patient Instructions Indication:Current smoker Start:11-Jul-2021 Instruction Type:Provider Instructions for Treatment How to Access Health Informa tion Online using Patient Portal and [employer] Apps Indication:Current smoker Start:11-Jul-2021 Instruction Type:Patient Education Patient Instructions Indication:Current smoker Start:13-May-2021 Instruction Type:Provider Instructions for Treatment How to Access Health Informa tion Online using Patient Portal and [employer] Apps Indication:Current smoker Start:13-May-2021 Instruction Type:Patient Education Patient Instructions Indication:Current smoker Start:22-Feb-2021 Instruction Type:Provider Instructions for Treatment How to Access Health Informa tion Online using Patient Portal and [employer] Apps Indication:Current smoker Start:22-Feb-2021 Instruction Type:Patient Education [facility]; [facility] Work Phone: instructions* Name Dates Details Patient Instructions Indication:Current smoker Start:13-Jan-2022 Instruction Type:Provider Instructions for Treatment How to Access Health Informa tion Online using Patient Portal and [employer] Apps Indication:Current smoker Start:13-Jan-2022 Instruction Type:Patient Education Patient Instructions Indication:Current smoker Start:11-Jul-2021 Instruction Type:Provider Instructions for Treatment How to Access Health Informa tion Online using Patient Portal and [employer] Apps Indication:Current smoker Start:11-Jul-2021 Instruction Type:Patient Education Patient Instructions Indication:Current smoker Start:13-May-2021 Instruction Type:Provider Instructions for Treatment How to Access Health Informa tion Online using Patient Portal and [employer] Apps Indication:Current smoker Start:13-May-2021 Instruction Type:Patient Education Patient Instructions Indication:Current smoker Start:22-Feb-2021 Instruction Type:Provider Instructions for Treatment How to Access Health Informa tion Online using Patient Portal and [employer] Apps Indication:Current smoker Start:22-Feb-2021 Instruction Type:Patient Education [facility]; [facility] Work Phone: Instructions* Name Dates Details Patient Instructions Indication:Current smoker Start:19-Mar-2022 Instruction Type:Provider Instructions for Treatment How to Access Health Informa tion Online using Patient Portal and [employer] Apps Indication:Current smoker Start:19-Mar-2022 Instruction Type:Patient Education Patient Instructions Indication:Current smoker Start:13-Jan-2022 Instruction Type:Provider Instructions for Treatment How to Access Health Informa tion Online using Patient Portal and [employer] Apps Indication:Current smoker Start:13-Jan-2022 Instruction Type:Patient Education Patient Instructions Indication:Current smoker Start:11-Jul-2021 Instruction Type:Provider Instructions for Treatment How to Access Health Informa tion Online using Patient Portal and [employer] Apps Indication:Current smoker Start:11-Jul-2021 Instruction Type:Patient Education Patient Instructions Indication:Current smoker Start:13-May-2021 Instruction Type:Provider Instructions for Treatment How to Access Health Informa tion Online using Patient Portal and [employer] Apps Indication:Current smoker Start:13-May-2021 Instruction Type:Patient Education Patient Instructions Indication:Current smoker Start:22-Feb-2021 Instruction Type:Provider Instructions for Treatment How to Access Health Informa tion Online using Patient Portal and [employer] Apps Indication:Current smoker Start:22-Feb-2021 Instruction Type:Patient Education [facility]; [facility] Work Phone: Instructions* Name Dates Details Patient Instructions Indication:Current smoker Start:19-Mar-2022 Instruction Type:Provider Instructions for Treatment How to Access Health Informa tion Online using Patient Portal and [employer] Apps Indication:Current smoker Start:19-Mar-2022 Instruction Type:Patient Education Patient Instructions Indication:Current smoker Start:13-Jan-2022 Instruction Type:Provider Instructions for Treatment How to Access Health Informa tion Online using Patient Portal and [employer] Apps Indication:Current smoker Start:13-Jan-2022 Instruction Type:Patient Education Patient Instructions Indication:Current smoker Start:11-Jul-2021 Instruction Type:Provider Instructions for Treatment How to Access Health Informa tion Online using Patient Portal and [employer] Apps Indication:Current smoker Start:11-Jul-2021 Instruction Type:Patient Education Patient Instructions Indication:Current smoker Start:13-May-2021 Instruction Type:Provider Instructions for Treatment How to Access Health Informa tion Online using Patient Portal and [employer] Apps Indication:Current smoker Start:13-May-2021 Instruction Type:Patient Education Patient Instructions Indication:Current smoker Start:22-Feb-2021 Instruction Type:Provider Instructions for Treatment How to Access Health Informa tion Online using Patient Portal and [employer] Apps Indication:Current smoker Start:22-Feb-2021 Instruction Type:Patient Education [facility]; [facility] Work Phone: Instructions* Name Dates Details Patient Instructions Indication:BMI less than 19,adult Start:04-Jun-2022 Instruction Type:Provider Instructions for Treatment How to Access Health Informa tion Online using Patient Portal and [employer] Apps Indication:BMI less than 19,adult Start:04-Jun-2022 Instruction Type:Patient Education Patient Instructions Indication:Current smoker Start:19-Mar-2022 Instruction Type:Provider Instructions for Treatment How to Access Health Informa tion Online using Patient Portal and [employer] Apps Indication:Current smoker Start:19-Mar-2022 Instruction Type:Patient Education Patient Instructions Indication:Current smoker Start:13-Jan-2022 Instruction Type:Provider Instructions for Treatment How to Access Health Informa tion Online using Patient Portal and [employer] Apps Indication:Current smoker Start:13-Jan-2022 Instruction Type:Patient Education Patient Instructions Indication:Current smoker Start:11-Jul-2021 Instruction Type:Provider Instructions for Treatment How to Access Health Informa tion Online using Patient Portal and [employer] Apps Indication:Current smoker Start:11-Jul-2021 Instruction Type:Patient Education Patient Instructions Indication:Current smoker Start:13-May-2021 Instruction Type:Provider Instructions for Treatment How to Access Health Informa tion Online using Patient Portal and [employer] Apps Indication:Current smoker Start:13-May-2021 Instruction Type:Patient Education Patient Instructions Indication:Current smoker Start:22-Feb-2021 Instruction Type:Provider Instructions for Treatment How to Access Health Informa tion Online using Patient Portal and [employer] Apps Indication:Current smoker Start:22-Feb-2021 Instruction Type:Patient Education [facility]; [facility] Work Phone: Instructions* Name Dates Details Patient Instructions Indication:BMI less than 19,adult Start:04-Jun-2022 Instruction Type:Provider Instructions for Treatment How to Access Health Informa tion Online using Patient Portal and [employer] Apps Indication:BMI less than 19,adult Start:04-Jun-2022 Instruction Type:Patient Education Patient Instructions Indication:Current smoker Start:19-Mar-2022 Instruction Type:Provider Instructions for Treatment How to Access Health Informa tion Online using Patient Portal and [employer] Apps Indication:Current smoker Start:19-Mar-2022 Instruction Type:Patient Education Patient Instructions Indication:Current smoker Start:13-Jan-2022 Instruction Type:Provider Instructions for Treatment How to Access Health Informa tion Online using Patient Portal and [employer] Apps Indication:Current smoker Start:13-Jan-2022 Instruction Type:Patient Education Patient Instructions Indication:Current smoker Start:11-Jul-2021 Instruction Type:Provider Instructions for Treatment How to Access Health Informa tion Online using Patient Portal and [employer] Apps Indication:Current smoker Start:11-Jul-2021 Instruction Type:Patient Education Patient Instructions Indication:Current smoker Start:13-May-2021 Instruction Type:Provider Instructions for Treatment How to Access Health Informa tion Online using Patient Portal and [employer] Apps Indication:Current smoker Start:13-May-2021 Instruction Type:Patient Education Patient Instructions Indication:Current smoker Start:22-Feb-2021 Instruction Type:Provider Instructions for Treatment How to Access Health Informa tion Online using Patient Portal and [employer] Apps Indication:Current smoker Start:22-Feb-2021 Instruction Type:Patient Education [facility]; [facility] Work Phone: Instructions* Name Dates Details Patient Instructions Indication:BMI less than 19,adult Start:04-Jun-2022 Instruction Type:Provider Instructions for Treatment How to Access Health Informa tion Online using Patient Portal and [employer] Indication:BMI less than 19,adult Start:04-Jun-2022 Instruction Type:Patient Education Patient Instructions Indication:Current smoker Start:19-Mar-2022 Instruction Type:Provider Instructions for Treatment How to Access Health Informa tion Online using Patient Portal and [employer] Apps Indication:Current smoker Start:19-Mar-2022 Instruction Type:Patient Education Patient Instructions Indication:Current smoker Start:13-Jan-2022 Instruction Type:Provider Instructions for Treatment How to Access Health Informa tion Online using Patient Portal and [employer] Apps Indication:Current smoker Start:13-Jan-2022 Instruction Type:Patient Education Patient Instructions Indication:Current smoker Start:11-Jul-2021 Instruction Type:Provider Instructions for Treatment How to Access Health Informa tion Online using Patient Portal and [employer] Apps Indication:Current smoker Start:11-Jul-2021 Instruction Type:Patient Education Patient Instructions Indication:Current smoker Start:13-May-2021 Instruction Type:Provider Instructions for Treatment How to Access Health Informa tion Online using Patient Portal and [employer] Apps Indication:Current smoker Start:13-May-2021 Instruction Type:Patient Education Patient Instructions Indication:Current smoker Start:22-Feb-2021 Instruction Type:Provider Instructions for Treatment How to Access Health Informa tion Online using Patient Portal and [employer] Apps Indication:Current smoker Start:22-Feb-2021 Instruction Type:Patient Education [facility]; [facility] Work Phone: Instructions* Name Dates Details Patient Instructions Indication:BMI less than 19,adult Start:04-Jun-2022 Instruction Type:Provider Instructions for Treatment How to Access Health Informa tion Online using Patient Portal and [employer] Indication:BMI less than 19,adult Start:04-Jun-2022 Instruction Type:Patient Education Patient Instructions Indication:Current smoker Start:19-Mar-2022 Instruction Type:Provider Instructions for Treatment How to Access Health Informa tion Online using Patient Portal and [employer] Indication:Current smoker Start:19-Mar-2022 Instruction Type:Patient Education Patient Instructions Indication:Current smoker Start:13-Jan-2022 Instruction Type:Provider Instructions for Treatment How to Access Health Informa tion Online using Patient Portal and [employer] Apps Indication:Current smoker Start:13-Jan-2022 Instruction Type:Patient Education Patient Instructions Indication:Current smoker Start:11-Jul-2021 Instruction Type:Provider Instructions for Treatment How to Access Health Informa tion Online using Patient Portal and [employer] Apps Indication:Current smoker Start:11-Jul-2021 Instruction Type:Patient Education Patient Instructions Indication:Current smoker Start:13-May-2021 Instruction Type:Provider Instructions for Treatment How to Access Health Informa tion Online using Patient Portal and [employer] Apps Indication:Current smoker Start:13-May-2021 Instruction Type:Patient Education Patient Instructions Indication:Current smoker Start:22-Feb-2021 Instruction Type:Provider Instructions for Treatment How to Access Health Informa tion Online using Patient Portal and [employer] Apps Indication:Current smoker Start:22-Feb-2021 Instruction Type:Patient Education [facility]; [facility] Work Phone: Instructions* Name Dates Details Patient Instructions Indication:Tobacco quit date established Start:16-Jul-2022 Instruction Type:Provider Instructions for Treatment How to Access Health Informa tion Online using Patient Portal and [employer] Indication:Tobacco quit date established Start:16-Jul-2022 Instruction Type:Patient Education Patient Instructions Indication:BMI less than 19,adult Start:04-Jun-2022 Instruction Type:Provider Instructions for Treatment How to Access Health Informa tion Online using Patient Portal and [employer] Indication:BMI less than 19,adult Start:04-Jun-2022 Instruction Type:Patient Education Patient Instructions Indication:Current smoker Start:19-Mar-2022 Instruction Type:Provider Instructions for Treatment How to Access Health Informa tion Online using Patient Portal and [employer] Indication:Current smoker Start:19-Mar-2022 Instruction Type:Patient Education Patient Instructions Indication:Current smoker Start:13-Jan-2022 Instruction Type:Provider Instructions for Treatment How to Access Health Informa tion Online using Patient Portal and [employer] Indication:Current smoker Start:13-Jan-2022 Instruction Type:Patient Education Patient Instructions Indication:Current smoker Start:11-Jul-2021 Instruction Type:Provider Instructions for Treatment How to Access Health Informa tion Online using Patient Portal and [employer] Indication:Current smoker Start:11-Jul-2021 Instruction Type:Patient Education Patient Instructions Indication:Current smoker Start:13-May-2021 Instruction Type:Provider Instructions for Treatment How to Access Health Informa tion Online using Patient Portal and [employer] Apps Indication:Current smoker Start:13-May-2021 Instruction Type:Patient Education Patient Instructions Indication:Current smoker Start:22-Feb-2021 Instruction Type:Provider Instructions for Treatment How to Access Health Informa tion Online using Patient Portal and [employer] Apps Indication:Current smoker Start:22-Feb-2021 Instruction Type:Patient Education [facility]; [facility] Work Phone: Instructions* Name Dates Details Patient Instructions Indication:Tobacco quit date established Start:16-Jul-2022 Instruction Type:Provider Instructions for Treatment How to Access Health Informa tion Online using Patient Portal and [employer] Indication:Tobacco quit date established Start:16-Jul-2022 Instruction Type:Patient Education Patient Instructions Indication:BMI less than 19,adult Start:04-Jun-2022 Instruction Type:Provider Instructions for Treatment How to Access Health Informa tion Online using Patient Portal and [employer] Indication:BMI less than 19,adult Start:04-Jun-2022 Instruction Type:Patient Education Patient Instructions Indication:Current smoker Start:19-Mar-2022 Instruction Type:Provider Instructions for Treatment How to Access Health Informa tion Online using Patient Portal and [employer] Indication:Current smoker Start:19-Mar-2022 Instruction Type:Patient Education Patient Instructions Indication:Current smoker Start:13-Jan-2022 Instruction Type:Provider Instructions for Treatment How to Access Health Informa tion Online using Patient Portal and [employer] Indication:Current smoker Start:13-Jan-2022 Instruction Type:Patient Education Patient Instructions Indication:Current smoker Start:11-Jul-2021 Instruction Type:Provider Instructions for Treatment How to Access Health Informa tion Online using Patient Portal and [employer] Indication:Current smoker Start:11-Jul-2021 Instruction Type:Patient Education Patient Instructions Indication:Current smoker Start:13-May-2021 Instruction Type:Provider Instructions for Treatment How to Access Health Informa tion Online using Patient Portal and [employer] Indication:Current smoker Start:13-May-2021 Instruction Type:Patient Education Patient Instructions Indication:Current smoker Start:22-Feb-2021 Instruction Type:Provider Instructions for Treatment How to Access Health Informa tion Online using Patient Portal and [employer] Indication:Current smoker Start:22-Feb-2021 Instruction Type:Patient Education [facility]; [facility] Work Phone: Instructions* Name Dates Details Patient Instructions Indication:Tobacco quit date established Start:16-Jul-2022 Instruction Type:Provider Instructions for Treatment How to Access Health Informa tion Online using Patient Portal and [employer] Indication:Tobacco quit date established Start:16-Jul-2022 Instruction Type:Patient Education Patient Instructions Indication:BMI less than 19,adult Start:04-Jun-2022 Instruction Type:Provider Instructions for Treatment How to Access Health Informa tion Online using Patient Portal and [employer] Indication:BMI less than 19,adult Start:04-Jun-2022 Instruction Type:Patient Education Patient Instructions Indication:Current smoker Start:19-Mar-2022 Instruction Type:Provider Instructions for Treatment How to Access Health Informa tion Online using Patient Portal and [employer] Indication:Current smoker Start:19-Mar-2022 Instruction Type:Patient Education Patient Instructions Indication:Current smoker Start:13-Jan-2022 Instruction Type:Provider Instructions for Treatment How to Access Health Informa tion Online using Patient Portal and [employer] Indication:Current smoker Start:13-Jan-2022 Instruction Type:Patient Education Patient Instructions Indication:Current smoker Start:11-Jul-2021 Instruction Type:Provider Instructions for Treatment How to Access Health Informa tion Online using Patient Portal and [employer] Indication:Current smoker Start:11-Jul-2021 Instruction Type:Patient Education Patient Instructions Indication:Current smoker Start:13-May-2021 Instruction Type:Provider Instructions for Treatment How to Access Health Informa tion Online using Patient Portal and [employer] Apps Indication:Current smoker Start:13-May-2021 Instruction Type:Patient Education Patient Instructions Indication:Current smoker Start:22-Feb-2021 Instruction Type:Provider Instructions for Treatment How to Access Health Informa tion Online using Patient Portal and [employer] Apps Indication:Current smoker Start:22-Feb-2021 Instruction Type:Patient Education [facility]; [facility] Work Phone: instructions* Name Dates Details Patient Instructions Indication:Tobacco quit date established Start:16-Jul-2022 Instruction Type:Provider Instructions for Treatment How to Access Health Informa tion Online using Patient Portal and [employer] Indication:Tobacco quit date established Start:16-Jul-2022 Instruction Type:Patient Education Patient Instructions Indication:BMI less than 19,adult Start:04-Jun-2022 Instruction Type:Provider Instructions for Treatment How to Access Health Informa tion Online using Patient Portal and [employer] Indication:BMI less than 19,adult Start:04-Jun-2022 Instruction Type:Patient Education Patient Instructions Indication:Current smoker Start:19-Mar-2022 Instruction Type:Provider Instructions for Treatment How to Access Health Informa tion Online using Patient Portal and [employer] Indication:Current smoker Start:19-Mar-2022 Instruction Type:Patient Education Patient Instructions Indication:Current smoker Start:13-Jan-2022 Instruction Type:Provider Instructions for Treatment How to Access Health Informa tion Online using Patient Portal and [employer] Apps Indication:Current smoker Start:13-Jan-2022 Instruction Type:Patient Education Patient Instructions Indication:Current smoker Start:11-Jul-2021 Instruction Type:Provider Instructions for Treatment How to Access Health Informa tion Online using Patient Portal and [employer] Apps Indication:Current smoker Start:11-Jul-2021 Instruction Type:Patient Education Patient Instructions Indication:Current smoker Start:13-May-2021 Instruction Type:Provider Instructions for Treatment How to Access Health Informa tion Online using Patient Portal and [employer] Indication:Current smoker Start:13-May-2021 Instruction Type:Patient Education Patient Instructions Indication:Current smoker Start:22-Feb-2021 Instruction Type:Provider Instructions for Treatment How to Access Health Informa tion Online using Patient Portal and [employer] Apps Indication:Current smoker Start:22-Feb-2021 Instruction Type:Patient Education [facility]; [facility] Work Phone: Family History Unknown Family Member Name Dates Details Brother 1 Comments:epilepsy Status:Active Father Comments:alcoholism, emphyse tracey Status:Active Mother Comments:Alcoholism, HTN, em physemia Status:Active Unknown Family Member Name Dates Details Brother 1 Comments:epilepsy Status:Active Father Comments:alcoholism, emphyse tracey Status:Active Mother Comments:Alcoholism, HTN, em physemia Status:Active Unknown Family Member Name Dates Details Brother 1 Comments:epilepsy Status:Active Father Comments:alcoholism, emphyse tracey Status:Active Mother Comments:Alcoholism, HTN, em physemia Status:Active Unknown Family Member Name Dates Details Brother 1 Comments:epilepsy Status:Active Father Comments:alcoholism, emphyse tracey Status:Active Mother Comments:Alcoholism, HTN, em physemia Status:Active Unknown Family Member Name Dates Details Brother 1 Comments:epilepsy Status:Active Father Comments:alcoholism, emphyse tracey Status:Active Mother Comments:Alcoholism, HTN, em physemia Status:Active Unknown Family Member Name Dates Details Brother 1 Comments:epilepsy Status:Active Father Comments:alcoholism, emphyse tracey Status:Active Mother Comments:Alcoholism, HTN, em physemia Status:Active Unknown Family Member Name Dates Details Brother 1 Comments:epilepsy Status:Active Father Comments:alcoholism, emphyse tracey Status:Active Mother Comments:Alcoholism, HTN, em physemia Status:Active Unknown Family Member Name Dates Details Brother 1 Comments:epilepsy Status:Active Father Comments:alcoholism, emphyse tracey Status:Active Mother Comments:Alcoholism, HTN, em physemia Status:Active Unknown Family Member Name Dates Details Brother 1 Comments:epilepsy Status:Active Father Comments:alcoholism, emphyse tracey Status:Active Mother Comments:Alcoholism, HTN, em physemia Status:Active Unknown Family Member Name Dates Details Brother 1 Comments:epilepsy Status:Active Father Comments:alcoholism, emphyse tracey Status:Active Mother Comments:Alcoholism, HTN, em physemia Status:Active Unknown Family Member Name Dates Details Brother 1 Comments:epilepsy Status:Active Father Comments:alcoholism, emphyse tracey Status:Active Mother Comments:Alcoholism, HTN, em physemia Status:Active Unknown Family Member Name Dates Details Brother 1 Comments:epilepsy Status:Active Father Comments:alcoholism, emphyse tracey Status:Active Mother Comments:Alcoholism, HTN, em physemia Status:Active Unknown Family Member Name Dates Details Brother 1 Comments:epilepsy Status:Active Father Comments:alcoholism, emphyse tracey Status:Active Mother Comments:Alcoholism, HTN, em physemia Status:Active Unknown Family Member Name Dates Details Brother 1 Comments:epilepsy Status:Active Father Comments:alcoholism, emphyse tracey Status:Active Mother Comments:Alcoholism, HTN, em physemia Status:Active Unknown Family Member Name Dates Details Brother 1 Comments:epilepsy Status:Active Father Comments:alcoholism, emphyse tracey Status:Active Mother Comments:Alcoholism, HTN, em physemia Status:Active Unknown Family Member Name Dates Details Brother 1 Comments:epilepsy Status:Active Father Comments:alcoholism, emphyse tracey Status:Active Mother Comments:Alcoholism, HTN, em physemia Status:Active Unknown Family Member Name Dates Details Brother 1 Comments:epilepsy Status:Active Father Comments:alcoholism, emphyse tracey Status:Active Mother Comments:Alcoholism, HTN, em physemia Status:Active Unknown Family Member Name Dates Details Brother 1 Comments:epilepsy Status:Active Father Comments:alcoholism, emphyse tracey Status:Active Mother Comments:Alcoholism, HTN, em physemia Status:Active Unknown Family Member Name Dates Details Brother 1 Comments:epilepsy Status:Active Father Comments:alcoholism, emphyse tracey Status:Active Mother Comments:Alcoholism, HTN, em physemia Status:Active Summary Purpose Advance Directives Latest Code Status on File Code Status Date Activated Date Inactivated Comments Full Code 09/10/2022 12:29 AM Code Status History Code Status Date Activated Date Inactivated Comments Full Code 09/09/2022 9:58 AM 09/09/2022 5:46 PM Latest Code Status on File Code Status Date Activated Date Inactivated Comments Full Code 09/10/2022 12:29 AM Code Status History Code Status Date Activated Date Inactivated Comments Full Code 09/09/2022 9:58 AM 09/09/2022 5:46 PM Reason for Referral Specialty Diagnoses / Procedures Referred By Contac t Referred To Contact Diagnoses Lung nodule Dyspnea on exertion Procedures ECHOCARDIOGRAM LA ECHO HEART XTHORACIC,COMPLETE W DOPPLER Martell Lou PA-C [address] [place] [phone] Referral ID Status Reason Start Date Expiration Date V isits Requested Visits Authorized [id number] New Request 07/30/2022 08/24/2023 1 1 Specialty Diagnoses / Procedures Referred By Contac t Referred To Contact Procedures DVT/VTE RISK ASSESSMENT Allison Carter PAC [address] [place] [id number] Referral ID Status Reason Start Date Expiration Date V isits Requested Visits Authorized [id number] New Request 09/09/2022 10/04/2023 1 1 Specialty Diagnoses / Procedures Referred By Contac t Referred To Contact [facility] [address] [place] [phone] Referral ID Status Reason Start Date Expiration Date Visits Re quested Visits Authorized Additional Source Comments (unrecognized sect ion and content) No Status Records FoundNo Status Records Found INFORMATION SOURCE (unrecogn ized section and content) DATE CREATED AUTHOR AUTHOR'S ORGANIZ ATION 09/18/2022 [facility] Reason for Visit (unrecogniz ed section and content) Reason Comments New Patient Pt denies SOB, cough , painNo concerns at this time Specialty Diagnoses / Procedures Referred By Bobby cho Referred To Contact Thoracic Surgery Diagnoses Other nonspecific abnormal finding of lung field Alyssa Horowitz, [facility] [address] [place] [address] [facility] [address] [place] [address] Referral ID Status Reason Start Date Expiration Date V isits Requested Visits Authorized [id number] New Request 07/17/2022 08/11/2023 1 1 Specialty Diagnoses / Procedures Referred By Bobby cho Referred To Contact Diagnoses Lung nodule Lung nodule [R91.1] Procedures LA BRNCHSC INCL FLUOR GDNCE DX W/CELL WASHG SPX LA THORACOSCOPY W/THERA WEDGE RESEXN INITIAL UNILAT LA THORACOSCOPY W/LOBECTOMY SINGLE LOBE BRONCHOSCOPY FLEXIBLE DIAGNOSTIC RESECTION LUNG WEDGE ROBOTIC INITIAL LOBECTOMY LUNG ROBOTIC Kadie Laurent MD [address] [place] [address] [facility] [address] [place] [address] Referral ID Status Reason Start Date Expiration Date Visits Re quested Visits Authorized [id number] 1 1 Reason Comments Surgical Follow-up Would like RX for ty lenol 3 instead of ultram if posiblePain R shoulder bladeMini loree without air leak+BM, afebrile Care Teams (unrecognized sec tion and content) Advertising Sales Assistant Relationship Specialty Start Date End Date Joan Ko, [address] [place] [phone] PCP - General Internal Medicine 07/18/22 Alexandra Stallings, RN Registered Nurse 07/18/22 Alyssa Horowitz, [facility] [address], [place] [id number] Oncologist Medical Oncology 07/18/22 Advertising Sales Assistant Relationship Specialty Start Date End Date Joan Ko DO [address] [place] [address] PCP - General Internal Medicine 07/18/22 Alexandra Stallings, RN Registered Nurse 07/18/22 Alyssa Horowitz, [facility] [address] [place] [address] Oncologist Medical Oncology 07/18/22 Advertising Sales Assistant Relationship Specialty Start Date End Date Joan Ko DO [address] [facility] [address] [place] [address] PCP - General Internal Medicine 07/18/22 Alexandra Stallings, RN Registered Nurse 07/18/22 Alyssa Horowitz, [facility] [address] [place], [place] [phone] Oncologist Medical Oncology 07/18/22 Advertising Sales Assistant Relationship Specialty Start Date End Date Joan Ko DO [address] [facility] [address] [place] [address] PCP - General Internal Medicine 07/18/22 Alexandra Stallings, RN Registered Nurse 07/18/22 Alyssa Horowitz, [facility] [address] [place] [address] Oncologist Medical Oncology 07/18/22 Advertising Sales Assistant Relationship Specialty Start Date End Date Joan Ko DO [address] [facility] [address] [place] [address] PCP - General Internal Medicine 07/18/22 Alexandra Stallings, LESA Registered Nurse 07/18/22 Alyssa Horowitz, [facility] [address] [place] [address] Oncologist Medical Oncology 07/18/22 Scheduled Active and Recently Administ ered Medications (unrecognized section and content) Continuous Medication Order 09/10/2022 09/11/2022 09/12/2022 Dextrose 5% and sodium chloride 0.45% IV solution (CANCELED) Intravenous, at 100 mL/hr, CONTINUOUS, Starting on Thu09/09/22 at 1800, Until Thu09/10/22 at 0600, Post-op/Post-Proc 0432 ($$New Bag$$ - Provider: Marifer Cee RN)0732 (Stopped - Provider: Devaughn Case, LESA) PRN Medication Order 09/10/2022 09/11/2022 09/12/2022 bisacodyl (DULCOLAX) suppository 10 mg 10 mg, Rectal, DAILY NEEDED, Starting on Michelle 09/11/22 at 1050, Until Thu09/12/22 at 1424, Constipation If No Bowel Movement in 48 Hours Ipratropium-albuterol (DUONEB) 0.5-2.5 (3) MG/3ML nebulizer solution 3 mL 3 mL, Nebulization, EVERY 6 HOURS NEEDED, Starting on Thu09/10/22 at 1949, Until Thu09/12/22 at 1424, Shortness of Breath, Breathing Treatment, Respiratory Distress, Wheezing, Cough, Post-op/Post-Proc traMADol (ULTRAM) tablet 50 mg 50 mg, Oral, EVERY 4 HOURS NEEDED, Starting on Thu09/09/22 at 1617, Until Thu09/12/22 at 1424, Moderate Pain, Severe Pain, Post-op/Post-Proc 0010 (Given - Provider: Marifer Cee RN)0501 (Given - Provider: Marifer Cee RN)1711 (Given - Provider: Devaughn Case, LESA) 1625 (Given - Provider: Lisa Castellanos RN) 0548 (Given - Provider: Floresita Son RN) FOR RECORDS PERTAINING TO PATIENTS WHO ARE OR HAVE BEEN ENROLLED IN A CHEMICAL DEPENDENCY/SUBSTANCEABUSE PROGRAM, SOME INFORMATION MAY BE OMITTED. This clinical summary was aggregated from multiple sources. Caution should be exercised in using it in the provision of clinical care. This summary normalizes information from multiple sources, and as a consequence, information in this document may materially change the coding, format and clinical context of patient data. In addition, data may be omitted in some cases. CLINICAL DECISIONS SHOULD BE BASED ON THE PRIMARY CLINICAL RECORDS. [facility] [employer] [facility]. provides no warranty or guarantee of the accuracy or completeness of information in this document.
--- NOTE | 2023-05-12 08:00 | PET_ITS ---
EXAMINATION: FDG PET/CT ? INDICATIONS: 67-year-old male with a history of apparent pulmonary nodularity, presenting for reevaluation. ? COMPARISON EXAMINATION: Previous FDG PET CT study dated 06/17/2022 ? INDEX LESION SIZE SUV INTERPRETATION NEW Left upper lung field, left upper lobe 6.2 mm 3.5 Fulfills quantitative criteria for viable neoplasm, histopathologic analysis is recommended.? ? NEW Left peristernal region 7.7 mm 2.8 Quantitative criteria for viable neoplasm are fulfilled ? NEW left lower lung field, left lower lobe ? 1.2 max Quantitative criteria for viable neoplasm not fulfilled. ? PREVIOUS Right upper medial lung field, right upper lobe ? ? Demonstrates metabolic resolution on the current examination. ? TECHNIQUE: Following the intravenous administration of 12.35 mCi of F-18 deoxyglucose via the left hand, multiplanar image acquisitions of the head, neck, chest, abdomen and pelvis to the level of the midthigh, obtained at one-hour post radiopharmaceutical administration contemporaneously interpreted with the current CT of the chest, abdomen and pelvis dated 05/12/2023 via coregistration and previous FDG PET CT study dated 06/17/2022 reveal: ? SERUM GLUCOSE LEVEL:? 86 mg/dL? HEIGHT:?? 68 inches WEIGHT:?? 140 pounds ? FINDINGS: ? HEAD/NECK:? There is no evidence of abnormal increased glucose metabolism in the pharyngeal mucosal space, parapharyngeal space, oropharynx, bilateral-lateral and anterior neck, hypopharynx and distribution of the larynx. ? The visualized portion of the cerebral cortical-subcortical structures demonstrate symmetric and preserved glucose metabolism. ? CHEST:? Facilitated uptake is noted in the left upper posterior medial lung zone, left upper lobe generating a calculated maximum standard uptake value of 3.5. The maximal axial diameter of the corresponding parenchymal density is 6.2 mm. Mild increased radiopharmaceutical concentration is defined in the left lower posterolateral lung zone, left lower lobe. The calculated maximum standard uptake value is 1.2. There is enhanced tracer uptake noted in the left peristernal region generating a calculated maximum standard uptake value of 2.8. The maximal axial diameter of the corresponding soft tissue density 7.7 mm. The left ventricular myocardium visualization is consistent with the fed state. ? CT of the chest demonstrates the following anatomic characteristics: Additional parenchymal changes noted in the bilateral hemithorax demonstrate no evidence of quantitatively significant increased FDG uptake. Emphysematous changes are defined in the bilateral upper-mid lung zones. Atherosclerotic calcification is defined in the thoracic aorta without evidence of dilatation, aneurysm formation. Mild coronary artery calcification is observed. A calcified parenchymal density noted in the left lower lung zone is ametabolic. ? ABDOMEN/PELVIS:? Normal physiologic distribution of the radiopharmaceutical is identified in the hepatic (3.0) and splenic parenchyma, both renal units, urinary bladder, and visualized intestinal tract. Diffuse intestinal tract is identified in all four quadrants of the abdominal-pelvic mesentery. Prominent uptake is noted in the left hemipelvic mesentery most consistent with visualization of the left ureter. ? CT of the abdomen and pelvis is remarkable for the following: Atherosclerotic calcification is defined in the abdominal aorta without evidence of dilatation, aneurysm formation. Abdominal-pelvic arterial calcification is observed. Mesenteric soft tissue densities are nonglucose avid. Right-left inguinal soft tissue densities demonstrate no evidence of increased tracer uptake. ? SKELETAL:? There is no evidence of quantitatively significant enhanced glucose metabolism on meticulous inspection of the appendicular and axial skeletal structures. ? Degenerative changes defined in the thoracic and lumbar spine demonstrate no evidence of increased glucose metabolism. There are no sclerotic, mixed sclerotic-lytic, or primarily lytic changes defined in the axial skeletal structures with evidence of increased FDG uptake. ? PET/PET/CT Tumor Base -Thigh Init IMPRESSION: 1. Increased radiopharmaceutical concentration currently defined in the left upper lung field, left upper lobe fulfills quantitative criteria for viable neoplasm with single point technique. Histopathologic analysis is recommended. 2. Facilitated uptake noted in the left peristernal region fulfills quantitative criteria for viable neoplasm. 3. Enhanced tracer uptake noted in the left lower lung field, left lower lobe does not fulfill quantitative criteria for malignant transformation. 4. Overall compared to the previous FDG PET CT study dated 06/17/2022, there is current depiction of viable pulmonary neoplastic disease. Electronic Signature Michael Ambriz D.O. Accurate Quantification of SUVs for this report are calculated using the exclusive [employer]. ([place]. Patent No. [id number] [phone] [phone] B2 [phone] patent [id number] [phone] [phone]). Standardization and correction of the FDG SUV metric via [employer] technology allow for vendor non-specific objective quantitative examination comparison and optimization of the sensitivity and specificity of the FDG PET-CT examination. . [email or web address] Electronically Signed: Michael Ambriz DO at 9:13 EST ,
== END | disposition home or self-care (01) ==
PROVIDERS: PCP Internal Medicine; Referring Provider Internal Medicine; Visit Provider Internal Medicine
DX: R91.8 Other nonspecific abnormal finding of lung field (principal)
CPT/HCPCS: 78815; A9552

== ENCOUNTER → 2023-09-04 | Outpatient (CLI) | payer MEDICARE, SELFPAY ==
--- NOTE | 2023-09-04 07:09 | CT_ITS ---
STUDY: CT CHEST WITH CONTRAST REASON FOR EXAM: Male, 68 years old. LUNG NODULE RADIATION DOSAGE (If Supplied By Facility): CTDIvol = ( 9.80 ) mGy, DLP = ( 250.61 ) mGycm TECHNIQUE: Transaxial imaging was performed following intravenous administration of IV 100mL Isovue-370. Multiplanar coronal and sagittal images were reformatted. Individualized dose optimization techniques were used for this CT. COMPARISON: Comparison is made with prior study June 03, 2022. FINDINGS: CHEST The previously seen 1.3 cm x 1.1 cm spiculated nodule in the posterior superior aspect of the right upper lobe has resolved. The previously seen 2.5 cm x 1.7 cm cystic nodule in the lateral aspect of the right middle lobe has cleared. The previously seen subcentimeters nodules in the left lower lobe has cleared as well. There is evidence of hyperinflation and diffuse emphysematous changes with bullous formation in the upper lobes. There are innumerable calcifications of the coronary arteries. Normal mediastinum. Normal hilar regions. Normal unenhanced pulmonary arteries. There is atherosclerotic calcification of the aortic arch. There are mild degenerative changes of the thoracic spine. There is no demonstrated abnormality of the visualized upper abdomen. CT/Chest WITH Contrast IMPRESSION: Hyperinflation and bullous formation with emphysematous changes. No suspicious nodules are seen at this time. Electronically Signed: Ghassan Paz MD at 10:13 EDT ,
[2023-09-04 07:43] LABS: CREATININE FINGERSTICK 1.4 mg/dL (0.70-1.30)
== END | disposition home or self-care (01) ==
LOC: CT 07:06
PROVIDERS: PCP Internal Medicine
DX: Z01.812 Encounter for preprocedural laboratory examination (principal); R91.1 Solitary pulmonary nodule
CPT/HCPCS: 71260; Q9967; A4216

== ENCOUNTER → 2024-07-23 | Outpatient (CLI) | payer MEDICARE, SELFPAY ==
--- NOTE | 2024-07-23 07:50 | CT_ITS ---
PROCEDURE: CHEST WITHOUT CONTRAST 07/23/2024 REASON FOR EXAM: LUNG NODULE TECHNIQUE: Chest CT without contrast. Coronal and Sagittal reconstruction series were provided. One or more dose reduction techniques were used (e.g., Automated exposure control, adjustment of the mA and/or kV according to patient size, use of iterative reconstruction technique. RADIATION DOSE SUMMARY: CTDlvol: 9 mGy DLP: 321 mGycm COMPARISON: CT chest 09/04/2023. PET-CT 05/15/2023. FINDINGS: Hardware: None. Lymph nodes: Visualization is limited without the use of IV contrast. No large thoracic lymphadenopathy. Heart and Vasculature: The heart is normal in size without pericardial effusion. Moderate coronary artery and mild thoracic aortic calcifications. The great vessels are normal in caliber. Lungs and Airways: Retained secretions within the central airways. Prior right upper lobe surgical resection with suture material. Persistent emphysema/COPD with bullous formation throughout the bilateral lungs, greatest within the apical lobes. Unchanged linear nodularity within the right upper lobe (coronal image 123). Slight interval improvement in the left posterior upper lobe linear nodularity (series 4, image 30). Unchanged left upper lobe pulmonary nodules (series 4, images 40, 43 and 53), present on CT chest 09/04/2023, however not present on most remote prior examination. No pleural effusion or pneumothorax. Upper Abdomen: Calcific plaque of the abdominal aorta. Bones: Cervical and thoracic spondylosis. CT/Chest without Contrast IMPRESSION: 1. Severe emphysema/COPD with bullous formation throughout the bilateral lungs. Prior right upper lobe surgical resection with suture material. 2. 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 Size of the pulmonary nodules is too small for accurate PET-CT characterization or visualization. Continued attenti on on follow-up imaging recommended. 3. No thoracic lymphadenopathy. Reading Location: [id number]
== END | disposition home or self-care (01) ==
LOC: CT 07:48
PROVIDERS: PCP Internal Medicine; Referring Provider Nurse Practitioner Adult Health; Visit Provider Nurse Practitioner Adult Health
DX: R91.1 Solitary pulmonary nodule (principal); Z87.891 Personal history of nicotine dependence
CPT/HCPCS: 71250

== ENCOUNTER → 2025-03-21 | Outpatient (CLI) | payer MEDICARE, SELFPAY ==
[2025-03-21 15:06] LABS: Hematocrit 41.3 % (40-54); Hemoglobin 14.0 g/dL (13.0-16.5); Immature Granulocytes Count 0.030 X10^3/uL (0.0-0.0); Mean Corp Hgb Conc 33.9 g/dL (32-36); Mean Corpuscular Volume 95.2 fL (80-94); Mean Platelet Vol. 9.5 fl (6.2-12.0); NRBC Flagged by Analyzer 0 % (0-5); Platelet Count 307 K/mm3 (150-450); RBC Distribution Width CV 14.0 % (11.6-14.6); RBC Distribution Width SD 49.1 fl (35.1-43.9); Red Blood Count 4.34 M/mm3 (4.6-6.2); White Blood Count 7.0 K/mm3 (4.4-11.0)
[2025-03-21 15:28] LABS: AST(SGOT) 25 U/L (<=37); Alanine Aminotransfer ALT/SGPT 17 U/L (<=46); Albumin, Serum 4.3 g/dL (3.4-4.8); Alkaline Phosphatase 63 U/L (40-129); Anion Gap 9 (7-18); BUN 21 mg/dL (4-19); BUN/Creat Ratio 16.6 RATIO (10-20); Calcium,Total 9.7 mg/dL (7.6-11.0); Carbon Dioxide 27.6 mmol/L (20.0-29.0); Chloride 98 mmol/L (96-106); Cholesterol 176 mg/dL (<=200); Globulin 2.8 g/dL (2.2-4.2); Glucose 96 mg/dL (70-99); Low Density Lipoprotein Calc. 118 mg/dL; Potassium 4.3 mmol/L (3.5-5.1); Triglycerides 56 mg/dL; Very Low Density Lipoprotein 11 mg/dL (5-40); cholesterol:hdl ratio screen 3.75
== END | disposition home or self-care (01) ==
LOC: CIMLAB 13:13
PROVIDERS: PCP Internal Medicine; Referring Provider Nurse Practitioner Family; Visit Provider Nurse Practitioner Family
DX: I10 Essential (primary) hypertension (principal)
CPT/HCPCS: 36415; 80053; 80061; 85025